=== PATIENT | female | born 1930 | race Caucasian/White ===

== ENCOUNTER 2016-12-05 11:10 | Emergency (ER) | payer OTHER ==
--- NOTE | ~2016-12-05 | CR63 ---
[facility]. [facility] A Service of [facility] & [facility] RADIOLOGY TEXT RESULTS PATIENT: HAYDE WHITLOCK LOCATION: SED : 30 UNIT #: [id number] AGE: [address]: Diego Bunch MD SEX: F ORDER DR: [id number] [id number] E MR#: [id number] Acc #: [id number] NAME: HAYDE WHITLOCK : 1930 SEX: F STUDY DATE/TIME: 12/05/2016 10:29 UNIT: SED ROOM: STUDY DESCRIPTION: CR Chest 2 View Attending Physician: Diego Bunch M.D. Ordering Physician: Diego Bunch M.D. Primary Care Physician: Ari Johnson M.D. MEDICAL IMAGING REPORT This report is preliminary unless electronic signature is present. EXAM Chest 2 views dated 12/05/2016 COMPARISON Single view chest dated 03/22/2009. HISTORY Tongue and bilateral arm numbness for 1 hour at 1200 hours yesterday. FINDINGS 2 views of the chest were obtained. Postoperative cardiac changes are noted with evidence of CABG. There is diffuse mild prominence of the interstitial markings which could be related to crowding in this poor inspiration film. However mild interstitial disease is in the differential consideration. There is mild right lung base alveolar infiltrate/atelectasis. No pneumothorax. Heart is of normal size. Degenerative changes are noted in the thoracic spine. Dictated by... Abhi Colon M.D. THIS IS AN ELECTRONICALLY VERIFIED REPORT Abhi Colon M.D. at 12/05/2016 2:42 PM CPR/mjs TD: 12/05/2016 13:24 JOB #: [id number] MEDICAL IMAGING REPORT Page 1 of 1
--- NOTE | ~2016-12-05 | EKG ---
PATIENT: HAYDE WHITLOCK UNIT #: [id number] Ventricular Rate: 64 BPM Atrial Rate: 64 BPM P-R Interval: 184 ms QRS Duration: 92 ms Q-T Interval: 414 ms QTC Calculation(Bezet): 427 ms P [place]: 67 degrees Calculated R [place]: 3 degrees Calculated T [place]: 16 degrees Diagnosis Line: Normal sinus rhythm Diagnosis Line: Moderate voltage criteria for LVH, may be normal Diagnosis Line: variant Diagnosis Line: Borderline ECG Diagnosis Line: No previous ECGs available Diagnosis Line: Confirmed by VALERY MURPHY MD ([id number]) on Diagnosis Line: 12/15/2016 7:14:00 AM INTERPRETING MD: NIRMAL
--- NOTE | ~2016-12-05 | CT72 ---
[facility] A Service [facility] RADIOLOGY TEXT RESULTS PATIENT: HAYDE WHITLOCK LOCATION: SED : 30 UNIT #: [id number] AGE: [address]: Diego Bunch MD SEX: F ORDER DR: [id number] [place] [id number] E MR#: [id number] [facility] #: [id number] NAME: HAYDE WHITLOCK. : 1930 SEX: F STUDY DATE/TIME: 12/05/2016 10:26 UNIT: SED ROOM: STUDY DESCRIPTION: CT Head Wo Contrast Stroke Attending Physician: Diego Bunch M.D. Ordering Physician: Diego Bunch M.D. Primary Care Physician: Ari Johnson M.D. MEDICAL IMAGING REPORT This report is preliminary unless electronic signature is present. EXAM Noncontrast CT head. Date: 12/05/2016 HISTORY 86-year-old female with bilateral arm numbness for 1 hour. Tongue numbness at noon yesterday. COMPARISON Noncontrast CT head 11/27/2008. The CT exam was performed with one or more of the following radiation dose reduction techniques: automatic exposure control, adjustment of mA and/or kV according to patient size, and iterative reconstruction. FINDINGS There is mild generalized age-appropriate parenchymal atrophy. The fried matter-white matter junction distinction appears preserved without convincing CT evidence of acute infarct. Hypodensities are scattered throughout the deep white matter, nonspecific but favored to represent changes of chronic microvascular disease. These findings appear slightly progressed since the 2008 exam. No mass lesion, mass effect or midline shift or evidence of acute intracranial hemorrhage. Mild dense atherosclerotic calcifications in the carotid arteries, mild atherosclerotic calcification in the right vertebral artery. Mastoid air cells appear clear. Right middle turbinate contra bullosa incidentally noted. Paranasal sinuses appear clear. No displaced calvarial fracture. IMPRESSION 1. Mild chronic-appearing microvascular disease changes appear slightly progressed since 2008 examination but there is no convincing evidence [facility] A Service [facility] RADIOLOGY TEXT RESULTS PATIENT: HAYDE WHITLOCK LOCATION: [facility] #: [id number] : 30 UNIT #: [id number] AGE: [address]: Diego Bunch MD SEX: F ORDER DR: of acute or evolving infarct. If the patient's stroke-like symptoms persist or remain unexplained, consider correlation MRI brain stroke protocol. 2. Mild age-appropriate parenchymal atrophy. 1. Dictated by... Elly Puga M.D. THIS IS AN ELECTRONICALLY VERIFIED REPORT Elly Puga M.D. at 12/06/2016 8:33 AM [facility]/gary TD: 12/05/2016 12:32 JOB #: [id number] MEDICAL IMAGING REPORT Page 1 of 1
[2016-12-05 10:26] LABS: POC - CKMB 1.5 ng/mL (0.0-7.9)
[2016-12-05 10:27] LABS: POC - TROPONIN <0.05 ng/mL (<=0.05)
[2016-12-05 10:35] LABS: INR 1.1
[2016-12-05 10:36] LABS: BASOPHIL# 0.1 X10e3 (0-0.3); BASOPHIL% 0.7 % (0-2.5); DIFF IND NO; EOSINOPHIL# 0.1 X10e3 (0-0.7); EOSINOPHIL% 0.9 % (0.0-7.0); HEMATOCRIT 40.9 % (35.0-45.0); HEMOGLOBIN 13.7 gm/dL (12.0-16.0); LYMPHOCYTE# 2.9 X10e3 (1.0-3.5); LYMPHOCYTE% 33.6 % (17.0-45.0); MEAN CELL VOLUME 81.7 FL (83-96); MEAN CORPUSCULAR HEMOGLOBIN 27.4 PG (28-34); MEAN CORPUSCULAR HGB CONC 33.6 g/dL (30-36); MEAN PLATELET VOLUME 8.8 FL (6.5-11.5); MONOCYTE# 0.7 X10e3 (0-1.0); NEUTROPHIL# 4.9 X10e3 (1.5-7.1); NEUTROPHIL% 56.8 % (40-75); PLATELET COUNT 297 X10e3 (140-420); RED BLOOD COUNT 5.01 X10e (3.90-5.30); WHITE BLOOD COUNT 8.6 X10e3 (4.0-10.5)
[2016-12-05 10:49] LABS: PARTIAL THROMBOPLASTIN TIME 28.4 SECONDS (25.6-38.1)
[2016-12-05 10:58] LABS: BILIRUBIN, DIRECT 0.1 mg/dL (0.0-0.2); BILIRUBIN,INDIRECT 0.5 mg/dL (0.0-0.9); BILIRUBIN,TOTAL 0.6 mg/dL (0.2-2.0); BUN/CREATININE RATIO 18.18; CALCIUM SERUM 10.3 mg/dL (8.4-10.2); CREATININE SERUM 1.1 mg/dL (0.6-1.4); GLOM FILT RATE Estimated 45.4 mL/min (>60); POTASSIUM 3.3 mmol/L (3.5-5.1); PROTEIN TOTAL SERUM 7.6 g/dL (6.0-8.3)
[~2016-12-05 11:10] MED LIST: AMLODIPINE BESYL5 MG PO; BAYER ASPIRIN325 M1 PO; BYSTOLIC10 MG PO; CENTRUM SILVER1 EAC3 PO; CHLORTHALIDONE50 M1 PO; FORTAMET500 MG PO; GLIPIZIDE-METF1 EACH PO; LANTUS100 UNITS/ SUBQ
[2016-12-05 11:16] LABS: URINE SOURCE CLEAN CATCH
[2016-12-05 11:17] LABS: URINE APPEARANCE CLEAR; URINE BILIRUBIN NEG (NEG); URINE BLOOD NEG (NEG); URINE COLOR YELLOW; URINE GLUCOSE NEG (NORM); URINE KETONE NEG (NEG); URINE LEUKOCYTE ESTERASE NEG (NEG); URINE NITRATE NEG (NEG); URINE PH 6.5 (5-8); URINE PROTEIN 2+ (NEG); URINE UROBILINOGEN 0.2 MG/DL (NORM)
[2016-12-05 11:18] LABS: MICRO INDICATED? YES
[2016-12-05 11:34] LABS: CULTURE INDICATED? NO; URINE BACTERIA NEG (NEG); URINE MUCUS PRESENT; URINE RBC NEG /[HPF] (0-2); URINE SQUAMOUS EPITHELIAL CELL FEW /[HPF]; URINE WBC NEG /[HPF] (0-5)
[2017-01-14] MEDS ORDERED: AMLODIPINE BESYL5 MG PO (16:16)
[2017-01-14] MEDS ORDERED: DULCOLAX10 MG PR (16:17)
[2017-01-14] MEDS ORDERED: BAYER ASPIRIN325 M1 PO (16:17)
[2017-01-14] MEDS ORDERED: CATAPRES0.1 MG PO (16:18)
[2017-01-14] MEDS ORDERED: HYDRALAZINE HCL50 MG PO (16:18)
[2017-01-14] MEDS ORDERED: NITROGLYGERIN0.4 MG SL (16:19)
[2017-01-14] MEDS ORDERED: CENTRUM SILVER PO (16:19)
[2017-01-14] MEDS ORDERED: SIMVASTATIN40 MG PO (16:21)
[2017-01-14] MEDS ORDERED: K-TAB ER20 MEQ PO (16:21)
[2017-01-15] MEDS ORDERED: HCTZ PO (11:26)
[2017-01-15] MEDS ORDERED: AMIODARONE (11:27)
== END 2016-12-05 12:26 | disposition hospice, home (50) ==
LOC: SED 11:10
PROVIDERS: Emergency Medicine
DX: R20.0 Anesthesia of skin (principal); R47.9 Unspecified speech disturbances; I10 Essential (primary) hypertension; E11.9 Type 2 diabetes mellitus without complications; Z95.1 Presence of aortocoronary bypass graft; Z98.890 Other specified postprocedural states; Z79.82 Long term (current) use of aspirin; Z79.899 Other long term (current) drug therapy
CPT/HCPCS: 36415; 70450; 71020; 80048; 80076; 81003; 82553; 83874; 84484; 85025; 85610; 85730; 93005; 99284

== ENCOUNTER 2017-01-04 08:56 | Inpatient (IN) | payer OTHER ==
--- NOTE | ~2017-01-04 | CO ---
Unit #: [id number] #: [id number] Patient: HAYDE WHITLOCK [id number] [address] [place], [place] [address] [id number] I MR#: [id number] NAME: HAYDE WHITLOCK ROOM: 334 Age: 86 Sex: F Admission Date: 01/04/2017 : 1930 Attending Physician: Fam Lugo M.D. Primary Care Physician: Ari Johnson M.D. Consultation Date: 01/05/2017 CONSULTATION REPORT REASON FOR CONSULTATION Sinus bradycardia with some pauses and nonconductive PACs. HISTORY OF PRESENT ILLNESS This is an 86-year-old white female with known history of having coronary artery disease, previous CABG back in 2002, but she reports she had a [place] back in 1981, diabetic, hypertension, hyperlipidemia, history of breast cancer status post mastectomy, history of bilateral carotid endarterectomies and reformed smoker. The patient came to the hospital after she was found by her granddaughter to be having some aphasia and altered mental status. The patient's granddaughter usually brings her child over to her house in the morning. 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 The granddaughter found the patient in the bed confused and, as mentioned, had abnormal speech. On interview with the patient today, who seems to be awake, alert and oriented, she says she does not really remember her granddaughter calling EMS but she does somewhat remember the ambulance ride to the hospital but really did not become fully aware of being in the hospital until late last evening. She reports that she has been having a headache for several days and has been feeling a little fatigued. She denies any chest pain, pain in her neck, bilateral jaw, shoulders, arms or elbow. She denies any palpitations. She has been having a little bit of dizziness she said with the headache but denies presyncope or syncope. The patient was brought in for further evaluation. In the emergency room, the patient's blood pressure was 216/71 and her heart rate was 79, respirations 18, afebrile. O2 sat was 98% on room air. CT of the head was done and showed nothing acute. They did not call a CODE stroke because they did not know the last normal time she was seen. Her potassium was noted to be 2.9 and the family reports that she had been admitted at [facility] in the past month or so for hypokalemia. The patient did report, after examined and interviewed by Dr. Omalley, that she did have some left-sided weakness in her upper extremity briefly that she recalls and also that she had an episode like this a couple of weeks ago but did not seek medical attention. It resolved simultaneously and not sure if she told her family. The patient's telemetry is showing frequent nonconductive PACs and then her heart rate will slow down maybe to the forties. 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 She says she has not for several years. She is unaware of any rhythm problems in the past. Cardiology consulted to assist with evaluation and management. PAST MEDICAL HISTORY 1. Coronary artery disease, myocardial infarction in 1981, medical management at that time and, in 2002, had a coronary artery bypass graft. Unit #: [id number] #: [id number] Patient: HAYDE WHITLOCK 2. Diabetes mellitus type 2. 3. Hypertension. 4. Hyperlipidemia. 5. History of breast cancer status post mastectomy. 6. Peripheral vascular disease status post bilateral carotid endarterectomy around 2002. 7. History of hypokalemia. Admission at [facility] in the past one to two months. 8. Reformed smoker. PAST SURGICAL HISTORY 1. Left mastectomy for breast cancer around 2002. 2. Bilateral carotid endarterectomy around 2002. 3. History of coronary artery bypass graft in 2002. SOCIAL HISTORY The patient lives in her home alone. She continues to drive. 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 She actually walks to the bus everyday and gets a small child and babysits. She quit smoking back in 1981 but she had smoked for several years. No alcohol or illicit drug abuse. FAMILY HISTORY Her mother at the age of 94. Her father at the age of 65 of a myocardial infarction. Her siblings are in generally well health. ALLERGIES Iodine. HOME MEDICATIONS 1. Chlorthalidone 50 mg p.o. daily. 2. Amlodipine 5 mg p.o. daily. 3. Junior aspirin 325 mg p.o. daily. 4. Centrum multivitamin one tablet p.o. daily. 5. Metformin two tablets p.o. daily. 6. Klor-Con 10 mEq p.o. daily. 7. Lantus 50 units subcu at bedtime. 8. Simvastatin 40 mg p.o. at bedtime. 9. Atenolol. Questionable dosage and frequency. The patient states she was on atenolol and it is not listed on her medication reconciliation. REVIEW OF SYSTEMS See details in HPI. PHYSICAL EXAMINATION GENERAL APPEARANCE: Ms. Whitlock is an 86-year-old white female in no acute respiratory distress. She is awake, alert and oriented. VITAL SIGNS: On admission, she was as high as 216/71. Her blood pressure elevated 181/70, as low as 143/64 and this morning 184/62. Heart rate 64. Respirations 18. Temperature 97.6. O2 sats 100% on room air. NECK: Trachea midline. No thyromegaly, lymphadenopathy. She has a systolic carotid bruit noted. HEART: S1, S2. Regular rate and rhythm. Systolic murmur over aortic region left sternal border. LUNGS: Diminished, otherwise, clear. ABDOMEN: Soft, nontender. EXTREMITIES: Pedal pulses are palpable. No pedal edema. DIAGNOSTIC STUDIES Unit #: [id number] #: [id number] Patient: HAYDE WHITLOCK LABORATORY: ABG: pH 7.451, pCO2 41.2, pO2 130, O2 sats 98.3, two liters. Glucose 142, BUN 15, creatinine 1.0, EGFR 51, sodium 139, potassium 3.5 this morning. On admission, her potassium was 2.9, chloride 103, CO2 29, calcium 7.5, magnesium 2.0, total protein 5.8, albumin 3.1, bilirubin total 0.8, AST 18, ALT 15, alkaline phosphatase 51. Initial cardiac enzymes: CK MB 1.8, troponin less than 0.05. CK MB 1.5, troponin less than 0.05. INR 1.0. WBC 10.2, hemoglobin 12.8, hematocrit 39.4, platelets 230. Urinalysis shows 2+ protein, 500 glucose, 0.2 urobilinogen, 1+ blood. IMAGING: Chest x-ray shows CABG and some increase in the interstitial markings diffusely. CT of the chest without contrast with no definite abnormality. MRI of the brain shows moderate small vessel type white matter change and volume loss but no evidence of acute ischemia. MRA of the neck with and without contrast shows a moderate left subclavian artery stenosis beginning at its origin and extending for about 1.0 cm and probable mild left vertebral origin stenosis and moderate upper left cervical vertebral stenosis. Plaque at both cervical carotid bifurcation with the left being 50%. MRA of the head with no contrast shows no compelling evidence of substantial intracranial flow-limiting stenosis. 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 CARDIOVASCULAR: EKG shows normal sinus rhythm with frequent premature atrial contractions, left ventricular hypertrophy, ventricular rate 76 beats per minute. No ischemia. IMPRESSION 1. Altered mental status changes, questionable TIA versus stroke. 2. Slowing of the heart rate secondary to nonconductive PACs. 3. Left carotid bruit questionable left subclavian steal and questionable restenosis of the left carotid. 4. Poorly controlled hypertension. 5. Diabetes mellitus type 2. 6. Hyperlipidemia. 7. History of coronary artery disease. Previous coronary artery bypass grafts in 2002. 8. History of bilateral carotid endarterectomies. 9. Breast cancer status post mastectomy. 10. History of hypokalemia with a history of recent hospitalization at [facility]. 11. Reformed smoker. PLAN 1. Cardiology consulted to evaluate patient's slowing of her heart rate. After looking over the telemetry strips, the patient is having slowing of the heart rate secondary to nonconductive PACs. Dr. Omalley evaluated the rhythm strips and wants to stop the atenolol that the patient reports that she was taking. She reports she thought she took it yesterday morning and we will change that to amiodarone for control of the PACs. 2. Dr. Omalley has consulted Dr. Mckeon for possible subclavian steal syndrome. The patient has a left carotid bruit and it appears maybe on her MRA of the neck that she could have some restenosis of her left carotid, which may be causing some of her symptoms. He will come and evaluate the patient. She will need a CT angiogram to evaluate for carotid and subclavian artery stenosis and that will be tomorrow. We will give the patient Mucomyst 600 mg p.o. b.i.d. x4 doses. Unit #: [id number] #: [id number] Patient: CHINYERE,HAYDE A 3. The patient's blood pressure was poorly controlled on admission and also her potassium is low. We will discontinue the chlorthalidone and increase the amlodipine from 5 to 10 mg and also we will add clonidine 0.1 mg p.o. t.i.d. and hydrochlorothiazide 25 mg p.o. daily for blood pressure control. The patient is on the magnesium and potassium protocol. We will make final recommendations on the dose of potassium before discharge. 4. Obtain records from [facility]. She states that is where she had her surgeries years ago and also obtain records from [facility]. She had a recent admission. 5. On exam, there are no signs or symptoms of unstable angina. Cardiac enzymes have remained negative. EKG unremarkable. No signs or symptoms of acute congestive heart failure. 6. Neurology is managing the patient's anticoagulation for now. She is on aspirin and they have started Plavix if the patient can swallow and she did have a swallowing test and her diet has been advanced. 7. Obtain a 2-D echo to evaluate LV function and valves. 8. Obtain a fasting lipid profile and TSH and evaluate. 9. Further recommendations pending per Dr. Omalley. Thank you very much for allowing us to assist in the care. Dictated by... Leila Martinez A.P.R.N. for Gael Omalley M.D. JOSE/baldemar TD: 01/05/2017 09:40 JOB #: [id number] CONSULTATION REPORT Page 1 of 1 X Leila Martinez APRN X CONSULTATION REPORT
--- NOTE | ~2017-01-04 | DS ---
Unit #: [id number] #: [id number] Patient: HAYDE WHITLOCK [id number] [address] [place], [place] [address] [id number] MR#: [id number] NAME: HAYDE WHITLOCK. ROOM: 334 Age: 86 Sex: F Admission Date: 01/04/2017 : 1930 Discharge Date: 01/08/2017 Attending Physician: Fam Lugo M.D. Primary Care Physician: Ari Johnson M.D. DISCHARGE SUMMARY ADMITTING DIAGNOSIS Altered mental status. FURTHER DIAGNOSES 1. 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 2. Diabetes. 3. Hypertension. 4. Hyperlipidemia. 5. History of coronary artery disease. 6. History of breast cancer. HISTORY OF PRESENT ILLNESS Patient is an 86-year-old lady with a past medical history of diabetes, hypertension, hyperlipidemia, coronary artery disease, breast cancer, was brought to the emergency room mainly because of altered mental status. 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 At the time 911 was called and she was brought to the emergency room. Stroke protocol was not initiated as duration when she was last really good is unknown. In the emergency room a CT of the head and later a followed by MRA was done. No acute evidence of stroke was noted. She had hypokalemia which was treated. Her initial potassium was 2.9. She was given potassium replacements and monitored. She had frequent PACs and questionable left bundle-branch block for further evaluation. Cardiology was consulted. Cardiology titrated the medications. Because of her hypokalemia, chlorthalidone was stopped and she started on thiazides and other cardiac medications. With a concern for subclavian steal syndrome Vascular Surgery was consulted. As her pulses were good Vascular Surgery recommended no intervention at this point. She was instructed to follow with her primary care and cardiology in one to two weeks. She is very hard to hear. Today I spoke with patient and her daughter at length and explained to her she needs home healthcare and she needs to follow with primary care and cardiology in one to two weeks. PHYSICAL EXAMINATION ON THE DAY OF THE DISCHARGE VITAL SIGNS: Temperature 97.8, pulse rate 81, respirations 18, blood pressure 140/60. GENERAL: Patient is alert and oriented x3, lying in the bed, in no acute distress. HEENT: Normocephalic and atraumatic. No icterus. PERRLA. Extraocular movements intact. NECK: Supple. No JVD. HEART: S1, S2, regular rate and rhythm. Unit #: [id number] #: [id number] Patient: HAYDE WHITLOCK CHEST: Bilateral equal air entry, clear to auscultation. ABDOMEN: Soft, nontender. EXTREMITIES: No edema. Normal peripheral pulses. DIAGNOSTIC STUDIES LABORATORY: She does not have any labs today. On the labs from yesterday her diagnostic date includes glucose of 94, BUN 15, creatinine 0.9, sodium 140, potassium 3.3 (she did get replacement), chloride 106, bicarb 28, magnesium 2.1. DISCHARGE MEDICATIONS Her discharge medications include: 1. Amiodarone 200 mg p.o. daily. 2. Topamax 25 mg p.o. b.i.d. 3. Metformin 500 two tabs p.o. daily. 4. Norvasc 10 mg daily. 5. Bisacodyl 10 mg p.o. daily p.r.n. constipation. 6. Simvastatin 40 mg p.o. q.h.s. 7. Lantus 50 units subcu q.h.s. 8. Clonidine 0.1 mg daily. 9. Hydralazine 15 mg p.o. b.i.d. 10. Lantus 50 units subcu daily. 11. Multivitamin one capsule p.o. daily. 12. Aspirin 325 mg daily. 13. KCl 10 mEq p.o. daily. FOLLOWUP She is instructed to follow with her primary care and with cardiology in one to two weeks. NOTE She is hard to hear. I spoke with her daughter and explained to her the plan. Total time spent in her discharge 35 minutes. Dictated by... Fam Lugo M.D. JARETT/jacinto TD: 01/09/2017 17:42 JOB #: [id number] DISCHARGE SUMMARY Page 1 of 1 X X DISCHARGE SUMMARY
--- NOTE | ~2017-01-04 | MR133 ---
[facility] A Service of [facility] & [facility] RADIOLOGY TEXT RESULTS PATIENT: HAYDE WHITLOCK LOCATION: [facility] 334- : 30 UNIT #: [id number] AGE: [address]: Fam Lugo MD SEX: F ORDER DR: [id number] [facility] [address] [place], [place] [address] [id number] I MR#: [id number] Acc #: [id number] NAME: HAYDE WHITLOCK. : 1930 SEX: F STUDY DATE/TIME: 01/04/2017 21:34 UNIT: [address] ROOM: [facility] STUDY DESCRIPTION: MR MRA Neck WWo Contrast Attending Physician: Laine Blanco M.D. Ordering Physician: Elian Dunaway M.D. Primary Care Physician: Ari Johnson M.D. MRI CENTER REPORT This report is preliminary unless electronic signature is present. EXAM Neck MRA with and without contrast, 01/04/2017 PROCEDURE Axial occe-bn-kwhlww neck MRA with three dimensional reformats, and coronal gadolinium bolus neck MRA with three dimensional reformats. COMPARISON None HISTORY Confusion and speech disturbance since this morning. Aphasia. FINDINGS There is a normal arch branching pattern. There is moderate stenosis in the proximal left subclavian artery beginning at its origin and extending for about 1.0 cm. There is probably mild left vertebral origin stenosis and there is at least moderate upper left cervical vertebral stenosis as well. No other great vessel origin stenosis is seen. There is plaque at the cervical carotid bifurcations with about 40% to 50% left ICA stenosis by NASCET criteria on the left, and on the right, probably no more than 10% to 20% ICA stenosis by NASCET criteria. The right vertebral appears widely patent from its origin and throughout the neck. IMPRESSION 1. At least moderate left subclavian artery stenosis beginning at its origin and extending for about 1.0 cm, and probably mild left vertebral origin stenosis but at least moderate upper left cervical vertebral stenosis probably at about the C3 level. 2. Plaque at both cervical carotid bifurcations with probably 50% left STS. [facility] A Service of [facility] & [facility] RADIOLOGY TEXT RESULTS PATIENT: HAYDE WHITLOCK LOCATION: [facility] 334-01 : 30 UNIT #: [id number] AGE: [address]: Fam Lugo MD SEX: F ORDER DR: and 10% right ICA stenosis by NASCET criteria. Dictated by... Jose Posey M.D. THIS IS AN ELECTRONICALLY VERIFIED REPORT Jose Posey M.D. at 01/05/2017 3:56 PM AVNI/simba TD: 01/05/2017 08:00 JOB #: [id number] MRI CENTER REPORT Page 1 of 1 COPY
--- NOTE | ~2017-01-04 | EKG ---
PATIENT: HAYDE WHITLOCK UNIT #: [id number] Ventricular Rate: 51 BPM Atrial Rate: 51 BPM P-R Interval: 142 ms QRS Duration: 90 ms Q-T Interval: 460 ms QTC Calculation(Bezet): 423 ms P [place]: 12 degrees Calculated R [place]: 9 degrees Calculated T [place]: 18 degrees Diagnosis Line: Sinus bradycardia with marked sinus arrhythmia Diagnosis Line: Otherwise normal ECG Diagnosis Line: When compared with ECG of 04-JAN-2017 09:15, Diagnosis Line: Vent. rate has decreased BY 25 BPM Diagnosis Line: Confirmed by CHELSEY STAPLES MD ([id number]) on 01/09/2017 Diagnosis Line: 5:40:28 AM INTERPRETING MD: JHOAN CARPENTER
--- NOTE | ~2017-01-04 | CO ---
Unit #: [id number] #: [id number] Patient: HAYDE WHITLOCK [id number] [facility] [address] [place], [place] [address] [id number] I MR#: [id number] NAME: HAYDE WHITLOCK. ROOM: 334 Age: 86 Sex: F Admission Date: 01/04/2017 : 1930 Attending Physician: Fam Lugo M.D. Primary Care Physician: Ari Johnson M.D. CONSULTATION REPORT REASON FOR CONSULT Rule out carotid atherosclerosis and subclavian steal. HISTORY OF PRESENT ILLNESS This is an 86-year-old female being seen today in the EEG lab who initially presented to [facility] after suffering "stroke-like symptoms." She has a history of experiencing similar episodes in the past. She reports that she has no recollection of coming to the hospital but she knows that she was confused at the time of the event. Similar episodes in the past have also been attributed to hypoglycemia and she recalls one such event where her blood sugar registered 36. Ms. Whitlock has a history of undergoing bilateral carotid endarterectomies in June and July respectively of [address] Geronimo. Following these surgeries, she also underwent coronary artery bypass grafting x5. She reports no recent followup with vascular surgery to monitor her carotid arteries. She complains of no pain with ambulation and ambulates as much as desired. 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 ALLERGIES Allergies include iodine. MEDICATIONS Home medications include: 1. Chlorthalidone 50 mg daily. 2. Amlodipine 5 mg daily. 3. Bystolic 10 mg daily. 4. 325 mg aspirin daily. 5. Calcium tablet daily. 6. Centrum Silver vitamin daily. SOCIAL HISTORY The patient lives alone. She has a history of smoking although she quit in 1981. Denies alcohol or drug use. REVIEW OF SYSTEMS Negative unless noted in the HPI. PHYSICAL EXAMINATION GENERAL APPEARANCE: This is a well developed, well nourished female in no acute distress. HEENT: Normocephalic. Pupils equal, round, reactive to light. NECK: Bilateral carotid bruits, left louder than right. Well-healed bilateral neck scars. Unit #: [id number] #: [id number] Patient: HAYDE WHITLOCK CARDIAC: Regular rate and rhythm. No murmurs identified. LUNGS: Clear to auscultation, room air. Breathing is nonlabored. ABDOMEN: Positive bowel sounds. Abdomen is soft, nontender, no distention. No palpable pulsatile masses felt on examination. MUSCULOSKELETAL: Patient moves all extremities with full range of motion. VASCULAR: Palpable radial pulses bilaterally with left radial pulse mildly weaker than right radial pulse. Palpable femoral pulses bilaterally. Palpable dorsalis pedis and posterior tibialis pulses bilaterally. INTEGUMENTARY: Skin is warm and dry. No obvious sores, lesions or nonhealing wounds. NEUROLOGICAL: Cranial nerves II-XII are grossly intact. Normal strength and sensation bilaterally. PSYCHIATRIC: Oriented to person, place and time. Generally good historian. DIAGNOSTIC STUDIES IMAGING: Patient underwent MR imaging of the head which demonstrates left subclavian artery stenosis and left vertebral artery origin stenosis. Bilateral carotids suggest atherosclerosis with left measuring 50% stenosis and right measuring 10% stenosis by NASCET criteria. ASSESSMENT AND PLAN Carotid atherosclerosis: Will check CTA of the head and neck to further assess the severity of her carotid disease. Will premedicate the patient per radiology protocol given her iodine allergy. With respect to her left subclavian artery stenosis, she does not appear symptomatic from this at this time. She has palpable radial pulses and she reports experiencing no pain in this hand even with increased demand with activity. We will continue to follow this patient and await results of CTA. Thank you for allowing us to participate in the care of this patient. Dictated by... Cesar Rao APRN for Ramesh Curry/claudia TD: 01/06/2017 08:22 JOB #: [id number] CONSULTATION REPORT Page 1 of 1 X X CONSULTATION REPORT
--- NOTE | ~2017-01-04 | CT17 ---
[facility] A Service of [facility] & [facility] RADIOLOGY TEXT RESULTS PATIENT: HAYDE WHITLOCK LOCATION: [facility] 334- : 30 UNIT #: [id number] AGE: [address]: Fam Lugo MD SEX: F ORDER DR: [id number] [facility] [address]. [place], [place] [address] [id number] I MR#: [id number] Acc #: [id number] NAME: HAYDE WHITLOCK : 1930 SEX: F STUDY DATE/TIME: 01/06/2017 8:12 UNIT: [address] ROOM: [facility] STUDY DESCRIPTION: CT Angio Head Attending Physician: Fam Lugo M.D. Ordering Physician: aFm Lugo M.D. Primary Care Physician: Ari Johnson M.D. MEDICAL IMAGING REPORT This report is preliminary unless electronic signature is present EXAM CTA head Please see CTA neck for results. Dictated by... Cachorro Valderrama M.D. THIS IS AN ELECTRONICALLY VERIFIED REPORT Cachorro Valderrama M.D. at 01/06/2017 11:34 PM DFL/nikr TD: 01/06/2017 23:32 JOB #: [id number] MEDICAL IMAGING REPORT Page 1 of 1 COPY
--- NOTE | ~2017-01-04 | EKG ---
PATIENT: HAYDE WHITLOCK UNIT #: [id number] Ventricular Rate: 76 BPM Atrial Rate: 76 BPM P-R Interval: 206 ms QRS Duration: 94 ms Q-T Interval: 408 ms QTC Calculation(Bezet): 459 ms P [place]: 74 degrees Calculated R [place]: 5 degrees Calculated T [place]: 16 degrees Diagnosis Line: Normal sinus rhythm with sinus arrhythmia Diagnosis Line: Moderate voltage criteria for LVH, may be normal Diagnosis Line: variant Diagnosis Line: Borderline ECG Diagnosis Line: When compared with ECG of 05-DEC-2016 09:51, Diagnosis Line: No significant change was found Diagnosis Line: Confirmed by SHAYLEE CABRERA MD ([id number]) on 01/04/2017 Diagnosis Line: 10:09:30 AM INTERPRETING MD: DEBORAH CARPENTER
--- NOTE | ~2017-01-04 | MR122 ---
[facility] A Service of [facility] RADIOLOGY TEXT RESULTS PATIENT: HAYDE WHITLOCK LOCATION: [facility] : 30 UNIT #: [id number] AGE: [address]: Fam Lugo MD SEX: F ORDER DR: [id number] [facility] [address] [place], [place] [address] [id number] I MR#: [id number] Acc #: [id number] NAME: HAYDE WHITLOCK. : 1930 SEX: F STUDY DATE/TIME: 01/04/2017 21:34 UNIT: [address] ROOM: [facility] STUDY DESCRIPTION: MR MRA Head Wo Contrast Attending Physician: Laine Blanco M.D. Ordering Physician: Eilan Dunaway M.D. Primary Care Physician: Ari Johnson M.D. MRI CENTER REPORT This report is preliminary unless electronic signature is present. EXAM Head MRA no contrast, 01/04/2017 PROCEDURE Axial azyi-ee-pdiewr head MRA with three dimensional reformats. COMPARISON None HISTORY Onset this morning of confusion and aphasia. FINDINGS Both upper cervical internal carotid and vertebral arteries are patent and the basilar artery is patent. [place] of [place] is probably complete though that is not definite. Question small bilateral M1 aneurysms at or about the Jae origins bilaterally. No other evidence of intracranial aneurysm is seen and there is no substantial intracranial flow limiting stenosis. IMPRESSION Symmetric intracranial vascularity in the anterior, middle and posterior cerebral distributions without compelling evidence of substantial intracranial flow limiting stenosis. Question small 1.0-2.0 mm Heubner aneurysms bilaterally. No other evidence of aneurysm. Dictated by... Jose Posey M.D. THIS IS AN ELECTRONICALLY VERIFIED REPORT Jose Posey M.D. at 01/05/2017 3:56 PM AVNI/simba [facility] A Service of [facility] RADIOLOGY TEXT RESULTS PATIENT: HAYDE WHITLOCK LOCATION: [facility] : 30 UNIT #: [id number] AGE: [address]: Fam Lugo MD SEX: F ORDER DR: TD: 01/05/2017 08:06 JOB #: [id number] MRI CENTER REPORT Page 1 of 1 COPY
--- NOTE | ~2017-01-04 | A ---
[facility] Nutrition Therapy DATE: 01/05/17 Patient: HAYDE WHITLOCK Physician: MO Address: [address] Room/Bed: [address] [place] [address], Zip: [place] [phone] Admit Date: 01/04/17 Date of : 30 Height: Weight: 141 64.1 NUTRITIONAL ASSESSMENT: REASON: STROKE PROTOCOL (NOTE: RD DID NOT RECEIVE CONSULT) 86 YO FEMALE ADMITTED FOR CVA PMH: DM, HTN, HLD, CAD, breast cancer s/p mastectomy, PAD, s/p CABG Anthropometrics: Ht: 5'4" Wt: 64.1 kg BMI: 24.2 Diet: Regular Assessment: Chart reviewed, events noted. RD spoke with the pt at bedside. 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 RD discussed heart healthy diet strategies with the pt, and she voiced understanding. Pt reports slightly decreased intake with advancing age. RD encouraged adequate nutritional intake with heart healthy diet strategies. Pt denied having any further questions regarding her diet. RD to remain available. Recommendations: 1. Heart healthy/ consistent carbohydrate diet due to the pt's PMH and Dx. Please consult RD for any further nutritional needs. Respectfully, LACEY SIU RD, LD Food and Nutritional Services [facility] cc: client file
--- NOTE | ~2017-01-04 | CT23 ---
[facility] A Service of [facility] & [facility] RADIOLOGY TEXT RESULTS PATIENT: HAYDE WHITLOCK LOCATION: [facility] 334- : 30 UNIT #: [id number] AGE: [address]: Fam Lugo MD SEX: F ORDER DR: [id number] [facility] [address] [place], [place] [address] [id number] I MR#: [id number] Acc #: [id number] NAME: HAYDE WHITLOCK. : 1930 SEX: F STUDY DATE/TIME: 01/06/2017 8:12 UNIT: [address] ROOM: [facility] STUDY DESCRIPTION: CT Angio Neck Attending Physician: Fam Lugo M.D. Ordering Physician: Fam Lugo M.D. Primary Care Physician: Ari Johnson M.D. MEDICAL IMAGING REPORT This report is preliminary unless electronic signature is present EXAM CT angiogram head and neck with IV contrast HISTORY Headache and dizzy for [address] exam was performed with one or more of the following radiation dose reduction techniques: automatic control, adjustment of mA and/or kV according to patient size, and iterative reconstruction. FINDINGS IV contrast enhanced CT angiogram of the head and neck was performed with 3-D reconstructions. CT ANGIOGRAM NECK: Approximately 70% stenosis at the origin of the left subclavian artery secondary to calcified plaque. Approximately 50% narrowing at the origin of the left vertebral artery secondary to calcified plaque. There is also approximately 70% left vertebral artery narrowing at the level of C3. Mild calcified atherosclerotic plaque in the distal left common carotid artery. Postop changes of prior bilateral carotid endarterectomies. Less than 20% stenosis at the carotid bulbs bilaterally, by NASCET criteria. The remainder of the cervical internal carotid arteries are widely patent. The right vertebral artery is widely patent. CT ANGIOGRAM BRAIN: The intracranial vertebral arteries and basilar artery are widely patent. Mild atherosclerotic plaque in the cavernous carotid arteries bilaterally. The anterior cerebral, middle cerebral and posterior cerebral arteries are widely patent bilaterally. No aneurysm or vascular malformation is identified. No posterior circulation abnormality. IMPRESSION [facility] A Service of [facility] & [facility] RADIOLOGY TEXT RESULTS PATIENT: HAYDE WHITLOCK LOCATION: A 334-01 : 30 UNIT #: [id number] AGE: [address]: Fam Lugo MD SEX: F ORDER DR: 1. Approximately 70% atherosclerotic stenosis at the origin of the left subclavian artery secondary to calcified atherosclerotic plaque. 2. Approximately 50% stenosis at the origin of the left vertebral artery also due to calcified plaque. 3. Approximately 70% short-segment stenosis of the left cervical vertebral artery at the level of C3. 4. Less than 20% stenosis in the carotid bulbs by NASCET criteria. 5. Prior bilateral carotid endarterectomies. 6. No intracranial arterial stenosis or major vessel occlusion. Dictated by... Cachorro Valderrama M.D. THIS IS AN ELECTRONICALLY VERIFIED REPORT Cachorro Valderrama M.D. at 01/07/2017 2:58 PM DFL/siva TD: 01/06/2017 23:31 JOB #: [id number] MEDICAL IMAGING REPORT Page 1 of 1 COPY
--- NOTE | ~2017-01-04 | CR72 ---
[facility] A Service of [place] & [facility] RADIOLOGY TEXT RESULTS PATIENT: HAYDE WHITLOCK LOCATION: [facility] : 30 UNIT #: [id number] AGE: [address]: Cecile Morales MD SEX: F ORDER DR: [id number] [facility] [address] [place], [place] [address] [id number] E MR#: [id number] Acc #: [id number] NAME: HAYDE WHITLOCK. : 1930 SEX: F STUDY DATE/TIME: UNIT: [facility] ROOM: STUDY DESCRIPTION: CR Chest Single View Portable Attending Physician: Cecile Morales M.D. Ordering Physician: Cecile Morales M.D. Primary Care Physician: Ari Johnson M.D. MEDICAL IMAGING REPORT This report is preliminary unless electronic signature is present EXAM Chest portable 01/04/2017 0925 hours HISTORY 86-year-old with altered mental status and shortness of air today. History of diabetes and prior CABG. COMPARISON 12/05/2016 FINDINGS Single upright portable view demonstrates prior median sternotomy and CABG. The heart size, mediastinal and hilar contours are normal. Lung volumes are lower than on the prior two-view chest. There is increase in interstitial markings diffusely. This could be a manifestation of the low lung volumes although mild interstitial edema is difficult to exclude. No effusions are seen. IMPRESSION 1. CABG change with normal heart size. 2. Lung volumes are lower than on the prior two-view chest of 12/05/2016. There is increase in the interstitial markings diffusely. Some or all of this could be related to the low lung volumes. It is difficult to exclude an element of edema. No effusions seen. Consider upright two-view chest film when possible to reevaluate the lungs. Dictated by... Michelle Mckeon M.D. THIS IS AN ELECTRONICALLY VERIFIED REPORT Michelle Mckeon M.D. at 01/04/2017 2:28 PM SMM/to [facility] A Service of [place] & [facility] RADIOLOGY TEXT RESULTS PATIENT: HAYDE WHITLOCK LOCATION: [facility] #: [id number] : 30 UNIT #: [id number] AGE: [address]: Cecile Morales MD SEX: F ORDER DR: TD: 01/04/2017 11:44 JOB #: [id number] MEDICAL IMAGING REPORT Page 1 of 1 COPY
--- NOTE | ~2017-01-04 | CO ---
Unit #: [id number] #: [id number] Patient: HAYDE WHITLOCK [id number] [facility] [address] [place], [place] [address] [id number] I MR#: [id number] NAME: HAYDE WHITLOCK ROOM: 334 Age: 86 Sex: F Admission Date: 01/04/2017 : 1930 Attending Physician: Fam Lugo M.D. Primary Care Physician: Ari Johnson M.D. Requesting Physician: Laine Blanco M.D. Consultation Date: 01/04/2017 CONSULTATION REPORT REVISED REPORT REASON FOR CONSULTATION CVA. PATIENT IDENTIFICATION This is an 86-year-old, right-handed, female evaluated in the ER, initially T2 and now currently in room 334 [facility]. SOURCE OF INFORMATION Came from the patient's family as well as the medical record. HISTORY OF PRESENT ILLNESS This is an 86-year-old right-handed female with a past medical history of coronary artery disease, status post CABG, hypertension, hyperlipidemia, and diabetes, history of breast cancer, status post mastectomy, and peripheral arterial disease who underwent a history of carotid endarterectomy and presents at [facility] with altered mental status and altered speech and reported right-sided weakness. The patient was apparently last seen normal yesterday, since she was not called in as a code stroke it was felt she was not a candidate for any kind of intervention. She was found by her granddaughter in the bed, confused, having abnormal speech, not acting normally. The patient's granddaughter found her as she normally brings her child to her grandmother's house to catch the bus each day. She called EMS and the patient was brought to the ER for further evaluation. In the ER her head CT was done and showed no acute findings. Her blood pressure was elevated at 216/71 and her potassium was noted to 2.9. Neurologically the patient was reported to have limited movement of the right side and aphasia but upon my evaluation the patient is moving the right side but is confused, is having trouble understanding and following commands and trouble with naming and identifying. She is somewhat lethargic. MRI of the brain is ordered for further evaluation, MR angiogram of the head and neck. Neurology is asked to evaluate further. The patient is unable to contribute to the history or review of systems given her mental status. According to the granddaughter she is functional at baseline, lives independently and carries out her normal daily activities without difficulty. PAST MEDICAL HISTORY 1. Admission to [facility] within the last month or two for Unit #: [id number] #: [id number] Patient: HAYDE WHITLOCK hypokalemia. 2. CAD, history of CABG. 3. Hypertension. 4. Hyperlipidemia. 5. Peripheral arterial disease. 6. History of carotid endarterectomy. 7. Breast cancer, status post mastectomy. 8. Diabetes. FAMILY HISTORY Noncontributory given her stated age of 86 and presenting condition. SOCIAL HISTORY The patient lives alone. She has good social support. She has a daughter and a granddaughter who check on her frequently. She drives independently at baseline and walks without assistance and carries out her normal ADLs very independently. She is a reformed smoker as she quit in 1981. She did not have any history of alcohol abuse or illicit drug use. ALLERGIES Iodine. HOME MEDICATIONS 1. Chlorthalidone 50 mg p.o. daily. 2. Amlodipine besylate 5 mg p.o. daily. 3. Junior aspirin 325 mg p.o. daily. 4. Centrum Silver multivitamin 1 tab p.o. daily. 5. Metformin 2 tabs p.o. daily. 6. Potassium chloride 10 mEq p.o. daily. 7. Lantus insulin 50 units subcu at bedtime. 8. Simvastatin 40 mg p.o. q.h.s. REVIEW OF SYSTEMS Unable to obtain from the patient given her mental status. PHYSICAL EXAMINATION VITAL SIGNS: Temperature 99. She had a T. max of 100.5, pulse 82, respirations 16, blood pressure 171/62. Oxygen saturation 98%. Height not documented. Weight 158 pounds. NEUROLOGIC EXAM: Patient is lethargic but arousable. She is hard of hearing. She can open her eyes. She has trouble with following commands but she can mimic. She otherwise has difficulty with naming and identifying. I am not able to fully assess orientation. She cannot answer questions about orientation. She recognizes her granddaughter at the bedside but is unable to say her name. Cranial nerve exam: She appears to respond to threats and primary visual gabriel is difficult to evaluate thoroughly and peripherally. Eyes were conjugate without ptosis or nystagmus. Extraocular movements appear to be intact when she initially tracks within the room. Unable to fully assess sensation of the face and scalp. With assess of strength of muscle facial expression, she can mimic and does not appear to have a facial droop. Hearing is intact to voice. Tongue is midline. Unable to fully visualize the uvula and palate. Head turning is unremarkable spontaneously. Neck is supple. Motor exam: She displays normal bulk, decreased tone. Strength is difficult to assess and the patient has difficulty following commands. As Unit #: [id number] #: [id number] Patient: HAYDE WHITLOCK A far as her osteopathic neurologist strength fully, she does have a mild right upper extremity drift but not in the lower extremities. She does not appear to have any hemiparesis or paralysis. Sensory exam: She does grimace and withdraws from noxious stimuli. Gait and Romberg: Deferred. Reflexes: Unable to elicit. Toes are equivocal. Coordination: Unable to fully assess. No tremors or myoclonus. DIAGNOSTIC STUDIES IMAGING STUDIES: CT of head without contrast on 01/04/2017, impression per radiology report. No clearly acute abnormality seen in the brain. Mild generalized atrophy, paraventricular deep white matter tract, probable sequelae of chronic microvascular ischemia, cavernous carotid and distal vertebral arterial calcifications. Mild mucosal thickening ethmoid and sphenoid sinuses, no indication of acute sinusitis. DIAGNOSTIC STUDIES LABS: Potassium 3.4, CK 59, troponin 0.04, TSH 0.84, (1) less than 0.5, lactic acid 1.3. Cholesterol 178, triglycerides 203, LDL 83, HDL 54, BNP 122. Initial troponin less than 0.05. Urinalysis - 2+ protein, 500 glucose, 1+ blood, negative for bacteria, occasional squamous cells. PT 10.4, INR 1.0, PTT 25.8. White blood cell count on arrival 10.0, hemoglobin 13.9, hematocrit 41.2, platelet 264. CARDIOLOGY STUDIES: EKG - normal sinus rhythm with sinus arrhythmia. IMPRESSION 1. Acute onset focal neurologic changes with aphasia, concern for possible left middle cerebral artery stroke given presentation for sudden abrupt change from baseline. She is not a candidate for acute intervention given unclear last known well. 2. Hypokalemia. 3. CAD with history of CABG in the past. 4. History of breast cancer. 5. History of carotid disease with history of left carotid endarterectomy. 6. Uncontrolled diabetes mellitus type 2. 7. Hypertension. 8. Hyperlipidemia. 9. Reformed smoker. PLAN Will request MRI of the brain and MRI of the head and neck. She needs contrast ideally given her history of cancer but has been decreased with estimated GFR. Patent receives an aspirin and has been loaded with Plavix. Will continue IV fluids, which has been okayed with the hospitalist physician at 75 mL an hour. Chest x-ray not discussed above but has low lung volume. Her BNP is only 122. Will monitor closely. Currently the patient is NPO until seen by speech. Will continue per rectal aspirin and add Plavix, pending MRI results and evaluation by speech. Head of bed flat if the patient can tolerate and oxygen to maintain O2 greater than 94%. Further recommendations pending workup for further clinical course. Please see orders. Please call for any questions or issues. We thank you very much for allowing us to assist in Unit #: [id number] #: [id number] Patient: HAYDE WHITLOCK the care of this patient. Dictated by... Marlen SolaresPJosiasRJosiasN. for Anabell Vivas M.D. KIRIT/mar TD: 01/05/2017 09:30 JOB #: [id number] CONSULTATION REPORT Page 1 of 1 X Nichelle Aj APRN X CONSULTATION REPORT
--- NOTE | ~2017-01-04 | CT57 ---
[facility] A Service of [facility] RADIOLOGY TEXT RESULTS PATIENT: HAYDE WHITLOCK LOCATION: [facility] 334- : 30 UNIT #: [id number] AGE: [address]: Fam Lugo MD SEX: F ORDER DR: [id number] [facility] [address] [facility]. [place], [place] [address] [id number] I MR#: [id number] Acc #: [id number] NAME: HAYDE WHITLOCK. : 1930 SEX: F STUDY DATE/TIME: 01/04/2017 15:55 UNIT: [address] ROOM: [facility] STUDY DESCRIPTION: CT Chest Wo Cont Attending Physician: Laine Blanco M.D. Ordering Physician: Laine Blanco M.D. Primary Care Physician: Ari Johnson M.D. MEDICAL IMAGING REPORT This report is preliminary unless electronic signature is present EXAM CT of the chest without contrast. INDICATIONS Shortness of breath since yesterday. Patient has acute resuscitate failure and fever. TECHNIQUE Axial CT images were obtained from the thoracic inlet through the dome of the diaphragm. Intravenous contrast material was administered. This CT exam was performed with one or more of the following radiation dose reduction techniques: automatic exposure control, adjustment of mA and/or kV according to patient size, and iterative reconstruction. FINDINGS No definite acute infiltrates are identified. The patient is noted to have some dependent atelectasis bilaterally, right greater than left, as well as probable scarring within the lingula. I do not see any discrete noncalcified pulmonary nodules or masses. The thyroid gland and trachea appear within normal limits, as does the esophagus. There is no pleural or pericardial effusion. There are coronary artery calcifications and atherosclerotic involvement of the thoracic aorta. Mediastinal lymph nodes do not appear pathologically enlarged. The patient has cholelithiasis with dense atherosclerotic involvement of the abdominal aorta. Review of bony windows shows no aggressive osseous abnormalities. The patient is status post left mastectomy. IMPRESSION 1. No definite acute intrathoracic process is seen. Patient does have some mild dependent atelectasis, but no definite infiltrates are STS. [facility] A Service of [facility] RADIOLOGY TEXT RESULTS PATIENT: HAYDE WHITLOCK LOCATION: [facility] 334-01 : 30 UNIT #: [id number] AGE: [address]: Fam Lugo MD SEX: F ORDER DR: identified. 2. Cholelithiasis. 3. Please see the body of the report for any other additional incidental findings. Dictated by... Kiley Ontiveros M.D. THIS IS AN ELECTRONICALLY VERIFIED REPORT Kiley Ontiveros M.D. at 01/06/2017 10:08 AM NEELA/dorian TD: 01/04/2017 18:46 JOB #: [id number] MEDICAL IMAGING REPORT Page 1 of 1 COPY
--- NOTE | ~2017-01-04 | MR18 ---
[facility] A Service [facility] RADIOLOGY TEXT RESULTS PATIENT: HAYDE WHITLOCK LOCATION: [facility] : 30 UNIT #: [id number] AGE: [address]: Fam Lugo MD SEX: F ORDER DR: [id number] [facility] [address]. [place], [place] [address] [id number] I MR#: [id number] Acc #: [id number] NAME: HAYDE WHITLOCK. : 1930 SEX: F STUDY DATE/TIME: 01/04/2017 21:34 UNIT: [address] ROOM: [facility] STUDY DESCRIPTION: MR Brain Wo Contrast Attending Physician: Laine Blanco M.D. Ordering Physician: Laine Blanco M.D. Primary Care Physician: Ari Johnson M.D. MRI CENTER REPORT This report is preliminary unless electronic signature is present. EXAM Unenhanced brain MRI 01/04/2017 PROCEDURE Routine unenhanced brain MRI. COMPARISON Head CT same date. HISTORY Confusion with aphasia since this morning. FINDINGS There is no MR evidence of acute ischemia. There is no restricted diffusion. There is age-appropriate volume loss and moderate nonspecific white matter change but no hemorrhage or hydrocephalus or extraaxial fluid collection. Normal flow voids are seen in the cerebral vessels. The extracranial structures are unremarkable and bone marrow signal is normal. IMPRESSION Moderate small vessel type white matter change and volume loss but no MR evidence of acute ischemia. No definite acute abnormality. Dictated by... Jose Posey M.D. THIS IS AN ELECTRONICALLY VERIFIED REPORT Jose Posey M.D. at 01/05/2017 3:56 PM AVNI/williams TD: 01/05/2017 07:55 JOB #: [id number] [facility] A Service [facility] RADIOLOGY TEXT RESULTS PATIENT: HAYDE WHITLOCK LOCATION: [facility] 334 : 30 UNIT #: [id number] AGE: [address]: Fam Lugo MD SEX: F ORDER DR: MRI CENTER REPORT Page 1 of 1 COPY
--- NOTE | ~2017-01-04 | HP ---
Unit #: [id number] #: [id number] Patient: HAYDE WHITLOCK [id number] [facility]. [place], [place] [address] [id number] E MR#: [id number] NAME: HAYDE WHITLOCK. ROOM: Age: 86 Sex: F Admission Date: 01/04/2017 : 1930 Attending Physician: Cecile Morales M.D. Primary Care Physician: Ari Johnson M.D. HISTORY AND PHYSICAL CHIEF COMPLAINT Altered mental status. HISTORY OF PRESENT ILLNESS The patient is an 86-year-old female with past medical history of diabetes, hypertension, hyperlipidemia, coronary artery disease, breast cancer, who presented to the emergency department for evaluation of the above. The patient was apparently in her usual state of health until the morning of admission when she was found by her granddaughter in bed confused. She was noted to have abnormal speech and was not acting normally. The patient's granddaughter apparently brings her child to her grandmother's house. The patient actually gets her great grandson on the bus each day. EMS was called. She was brought to the emergency department for further evaluation. Upon arrival in the emergency department, the patient's pulse and blood pressure were 79 and 216/[address] of the head was done and showed nothing acute. She was not a CODE Stroke due to unknown last normal. She is being admitted to [facility] for evaluation and further treatment. Of note, potassium is 2.9. She was given a total of 40 mEq of potassium in the emergency department. PAST MEDICAL HISTORY 1. Admission to [facility] within the past month or two for hypokalemia. 2. Coronary artery disease status post coronary artery bypass grafting. 3. Hypertension. 4. Hyperlipidemia. 5. Diabetes. 6. Breast cancer status post mastectomy. 7. Peripheral arterial disease status post carotid endarterectomy. PAST SURGICAL HISTORY 1. Coronary artery bypass grafting. 2. Mastectomy. 3. Carotid endarterectomy. SOCIAL HISTORY The patient lives alone. She drives. She typically walks without assistance. She quit smoking in 1981. There is no alcohol use. Unit #: [id number] #: [id number] Patient: CHINYERE,HAYDE A FAMILY HISTORY Notable for her mother dying at the age of 94. Her at the age of 65 of a myocardial infarction. ALLERGIES Iodine. HOME MEDICATIONS 1. Atenolol. 2. Lantus. 3. Metformin. 4. Chlorthalidone. 5. Amlodipine. 6. Potassium. 7. Simvastatin. Home medications will need to be reviewed and verified. REVIEW OF SYSTEMS A complete review of systems is unobtainable from the patient but negative except as indicated in the HPI per the patient's granddaughter. PHYSICAL EXAMINATION GENERAL APPEARANCE: The patient is a female who is sleeping but wakes to physical stimuli. VITAL SIGNS: Temperature 97.9. Pulse 79. Respirations 26. Blood pressure 216/71, most recently, 172/73. Oxygen saturation 100% on room air. HEENT: The head is atraumatic. Mucous membranes are moist. NECK: Supple. Trachea is midline. CARDIOVASCULAR: Regular rate and rhythm. LUNGS: Clear to auscultation bilaterally with no increased work of breathing. ABDOMEN: Soft, nontender with bowel sounds present in all four quadrants. EXTREMITIES: Nontender with no pedal edema. NEUROLOGIC: The patient is able to answer some questions as yes, otherwise, words are not making sense. She follows some commands. She appears to have neglect involving the right upper extremity. PSYCHIATRIC: The patient is somewhat agitated when asked to different things. SKIN: Of examined areas is warm and dry. DIAGNOSTIC STUDIES LABORATORY: Comprehensive metabolic panel notable for potassium of 2.9, chloride 99, glucose 277. Urinalysis notable for 2+ protein, 500 glucose, 1+ blood. INR is one. Troponin is less than 0.05. Complete blood count is notable for MCV of 79.9. IMAGING: Chest x-ray: Cannot exclude edema. CT of the head shows nothing acute. CARDIOVASCULAR: EKG shows normal sinus rhythm with sinus arrhythmia and a rate of 76 beats per minute. ASSESSMENT The patient is an 86-year-old female with: 1. Acute cerebrovascular accident. 2. Hypokalemia. The patient received 40 mEq of potassium in the Unit #: [id number] #: [id number] Patient: HAYDE WHITLOCK emergency department. 3. Uncontrolled diabetes with a glucose of 277. 4. Hypertension. 5. Hyperlipidemia. 6. Coronary artery disease status post coronary artery bypass grafting. 7. Breast cancer status post mastectomy. 8. Former smoker. PLAN 1. Admit to intermediate level. 2. NPO until speech evaluation. 3. Speech Therapy to evaluate and treat. 4. Neuro checks q.4 hours. 5. MRI of the brain without contrast. 6. CT angio of the head and neck. 7. Stroke protocol per Neurology. 8. Consult Dr. Dunaway regarding cerebrovascular accident. 9. Aspirin per rectum if not already given. 10. Check magnesium level. 11. Potassium and magnesium protocol. 12. Serial cardiac enzymes. 13. Hemoglobin A1C. 14. Low dose sliding scale insulin with Accu-Cheks. 15. SCDs. 16. PRN Zofran. 17. Repeat labs in the morning. 18. Additional workup and consultants based on above. Dictated by Ramesh Floyd/baldemar TD: 01/04/2017 12:52 JOB #: [id number] HISTORY AND PHYSICAL Page 1 of 1 X Laine Blanco MD X HISTORY AND PHYSICAL
--- NOTE | ~2017-01-04 | CT71 ---
[facility] A Service of [facility] RADIOLOGY TEXT RESULTS PATIENT: HAYDE WHITLOCK LOCATION: [facility] 334-01 : 30 UNIT #: [id number] AGE: [address]: Laine Blanco MD SEX: F ORDER DR: [id number] [facility] [address] [place], [place] [address] [id number] E MR#: [id number] Acc #: [id number] NAME: HAYDE WHITLOCK. : 1930 SEX: F STUDY DATE/TIME: 01/04/2017 9:41 UNIT: [facility] ROOM: STUDY DESCRIPTION: CT Head Wo Contrast Attending Physician: Cecile Morales M.D. Ordering Physician: Cecile Morales M.D. Primary Care Physician: Ari Johnson M.D. MEDICAL IMAGING REPORT This report is preliminary unless electronic signature is present EXAM CT head, 01/04/2017 HISTORY Confusion. Normally alert and oriented x 4. Altered mental status since yesterday. Right-sided weakness. Aphasia. Confusion since 01/03/2017. TECHNIQUE This CT exam was performed with one or more of the following radiation dose reduction techniques: automatic exposure control, adjustment of mA and/or kV according to patient size, and iterative reconstruction. FINDINGS CT head performed skull base through vertex without intravenous contrast. Comparison 12/05/2016. Brainstem is unremarkable. The cerebellum is normal in appearance. The cerebral hemispheres show overall preservation of fried matter-white matter differentiation. No hemorrhage. Periventricular and deep white matter tract hypodensities most consistent with sequelae of chronic microvascular ischemia. Similar appearance on prior examination. Midline structures are nondisplaced. No acute-appearing basal ganglia abnormality. Ventricles, cisterns and sulci show mild generalized enlargement consistent with mild generalized atrophy. There is no intra or extraaxial mass effect or abnormal intracranial fluid collection. There are cavernous carotid and distal vertebral arterial calcifications. The intraorbital soft tissues are unremarkable. The visualized paranasal sinuses and mastoid air cells show mucosal thickening ethmoid air cells and sphenoid sinus. No evidence of acute sinusitis. No fracture. IMPRESSION 1. No clearly acute abnormality is seen in the brain. If the patient has ongoing neurologic symptoms, followup imaging would be recommended, preferably with MRI if the patient is a candidate. [facility] A Service of [facility] & [facility] RADIOLOGY TEXT RESULTS PATIENT: HAYDE WHITLOCK LOCATION: [facility] 334-01 : 30 UNIT #: [id number] AGE: [address]: Laine Blanco MD SEX: F ORDER DR: 2. Mild generalized atrophy. 3. Periventricular and deep white matter tract probable sequelae of chronic microvascular ischemia. 4. Cavernous carotid and distal vertebral arterial calcifications. 5. Mild mucosal thickening ethmoid and sphenoid sinuses. No indication of acute sinusitis. Dictated by... Norris Ga M.D. THIS IS AN ELECTRONICALLY VERIFIED REPORT Norris Ga M.D. at 01/04/2017 6:14 PM CASS/simba TD: 01/04/2017 12:15 JOB #: [id number] MEDICAL IMAGING REPORT Page 1 of 1 COPY
--- NOTE | ~2017-01-04 | EE ---
Unit #: [id number] #: [id number] Patient: HAYDE WHITLOCK [id number] [address] [address] [id number] I MR#: [id number] NAME: HAYDE WHITLOCK. : 1930 SEX: F STUDY DATE/TIME: 01/05/2017 UNIT: C3A PCU ROOM: [address] [place] [address] DESCRIPTION: EEG Attending Physician: Fam Lugo M.D. Primary Care Physician: Ari Johnson M.D. NEURODIAGNOSTICS REPORT CHIEF COMPLAINT Confusion and aphasia. DESCRIPTION EEG was obtained in the awake and drowsy states using the 10-20 international lead placement system with photic stimulation. EEG showed well organized 8 Hz range background activity from the right hemisphere. The left hemisphere background activity was in the 7 Hz range. Response to photic stimulation was adequate. There were no epileptiform discharges present. IMPRESSION Abnormal EEG consistent with mild left hemispheric dysfunction. Clinical correlation is advised. Dictated by... Ramesh Degroot/reba TD: 01/06/2017 07:33 JOB #: [id number] NEURODIAGNOSTICS REPORT Page 1 of 1 X Anabell Vivas MD NEURODIAGNOSTICS REPORT
[2017-01-04 09:47] LABS: URINE SOURCE CLEAN CATCH
[2017-01-04 09:51] LABS: URINE APPEARANCE CLEAR; URINE BILIRUBIN NEG (NEG); URINE BLOOD 1+ (NEG); URINE COLOR YELLOW; URINE GLUCOSE 500 MG/DL (NEG); URINE KETONE NEG (NEG); URINE LEUKOCYTE ESTERASE NEG (NEG); URINE NITRATE NEG (NEG); URINE PH 8.5 (5-8); URINE PROTEIN 2+ (NEG); URINE SPECIFIC GRAVITY 1.013 (1.003-1.035); URINE UROBILINOGEN 0.2 MG/DL (NEG)
[2017-01-04 09:53] LABS: BASOPHIL% 0.3 % (0-2.5); EOSINOPHIL% 0.1 % (0.0-7.0); HEMATOCRIT 41.2 % (35.0-45.0); HEMOGLOBIN 13.9 gm/dL (12.0-16.0); LYMPHOCYTE# 1.6 X10e3 (1.0-3.5); LYMPHOCYTE% 15.8 % (17.0-45.0); MEAN CELL VOLUME 79.9 FL (83-96); MEAN CORPUSCULAR HGB CONC 33.8 g/dL (30-36); MEAN PLATELET VOLUME 8.5 FL (6.5-11.5); MONOCYTE# 0.5 X10e3 (0-1.0); MONOCYTE% 4.7 % (3.0-12.0); NEUTROPHIL# 7.9 X10e3 (1.5-7.1); NEUTROPHIL% 79.1 % (40-75); PLATELET COUNT 264 X10e3 (140-420); RED BLOOD COUNT 5.15 X10e (3.90-5.30); RED CELL DISTRIBUTION WIDTH 14.6 % (11.0-15.5)
[2017-01-04 09:54] LABS: URINE BACTERIA AUWI NEG (NEGATIVE); URINE SQUAMOUS EPITHELIAL CELL OCC /[HPF]; UWBCS1 AUWI 0-2 (0-5)
[2017-01-04 10:00] LABS: POC - CKMB 1.8 ng/mL (0.0-7.9); POC - TROPONIN <0.05 ng/mL (<=0.05)
[2017-01-04 10:00] LABS: DIFF IND NO
[2017-01-04 10:09] LABS: PARTIAL THROMBOPLASTIN TIME 25.8 SECONDS (23.5-31.3); PROTHROMBIN TIME (PATIENT) 10.4 SECONDS (9.6-11.5)
[2017-01-04 10:16] LABS: CULTURE INDICATED? NO
[2017-01-04 10:17] LABS: U HYALINE CASTS AUWI 0-2 /[LPF]; URBCS1 AUWI 0-2 /[HPF] (0-2)
[2017-01-04 10:26] LABS: ALBUMIN SERUM 3.8 g/dL (3.5-5.0); BILIRUBIN, DIRECT 0.2 mg/dL (0.0-0.2); BILIRUBIN,INDIRECT 0.4 mg/dL (0.0-0.9); BILIRUBIN,TOTAL 0.6 mg/dL (0.2-2.0); BUN/CREATININE RATIO 15.83; CALCIUM SERUM 9.3 mg/dL (8.4-10.2); CREATININE SERUM 1.2 mg/dL (0.6-1.4); GLOM FILT RATE Estimated 40.9 mL/min (>60); POTASSIUM 2.9 mmol/L (3.5-5.1); PROTEIN TOTAL SERUM 7.3 g/dL (6.0-8.3)
[2017-01-04 11:49] LABS: POC - CKMB 1.5 ng/mL (0.0-7.9); POC - TROPONIN <0.05 ng/mL (<=0.05)
[2017-01-04] MEDS ORDERED: SIMVASTATIN40 MG PO (12:44)
[2017-01-04] MEDS ORDERED: KCL PO (12:44)
[2017-01-04] MEDS ORDERED: LANTUS100 U/ML SUBQ (12:44)
[2017-01-04 13:00] LABS: ARTERIAL BLD GAS O2 SATURATION 98.3 % (90.0-100.0); ARTERIAL BLOOD GAS CARBOXY HB 0.6 %sat (0.0-9.0); ARTERIAL BLOOD GAS HCO3 28.7 mmol/L; ARTERIAL BLOOD GAS MET HB 0.5 %sat (0.0-2.0); ARTERIAL BLOOD GAS PCO2 41.2 mmHg (35.0-45.0); ARTERIAL BLOOD GAS pH 7.451 (7.350-7.450)
[2017-01-04 13:01] LABS: ARTERIAL BLOOD GAS ALLEN TEST NORMAL; ARTERIAL BLOOD GAS ART SITE RIGHT RADIAL; ARTERIAL BLOOD GAS DELIVERY NASAL CANNULA; ARTERIAL DRAW? YES
[2017-01-04 14:09] LABS: CHOLESTEROL 178 mg/dL (0-200); HDL CHOLESTEROL 54 mg/dL (35-95); LDL CHOLESTEROL 83 mg/dL (-130); LDL/HDL RATIO 2 RATIO (0-4); TRIGLYCERIDES 203 mg/dL (10-160)
[2017-01-04 18:14] LABS: CK TOTAL 59 IU/L (26-140)
[2017-01-05 00:26] LABS: CK TOTAL 49 IU/L (26-140)
[2017-01-05 05:24] LABS: HEMATOCRIT 39.4 % (35.0-45.0); HEMOGLOBIN 12.8 gm/dL (12.0-16.0); MEAN CELL VOLUME 81.8 FL (83-96); MEAN CORPUSCULAR HEMOGLOBIN 26.6 PG (28-34); MEAN CORPUSCULAR HGB CONC 32.5 g/dL (30-36); MEAN PLATELET VOLUME 8.8 FL (6.5-11.5); RED BLOOD COUNT 4.82 X10e (3.90-5.30); RED CELL DISTRIBUTION WIDTH 14.5 % (11.0-15.5); WHITE BLOOD COUNT 10.2 X10e3 (4.0-10.5)
[2017-01-05 05:37] LABS: PROTHROMBIN TIME (PATIENT) 10.6 SECONDS (9.6-11.5)
[2017-01-05 06:26] LABS: ALBUMIN SERUM 3.1 g/dL (3.5-5.0); BILIRUBIN,TOTAL 0.8 mg/dL (0.2-2.0); CALCIUM SERUM 8.5 mg/dL (8.4-10.2); POTASSIUM 3.5 mmol/L (3.5-5.1); PROTEIN TOTAL SERUM 5.8 g/dL (6.0-8.3)
[2017-01-06 06:08] LABS: HEMATOCRIT 37.7 % (35.0-45.0); HEMOGLOBIN 12.4 gm/dL (12.0-16.0); MEAN CELL VOLUME 81.2 FL (83-96); MEAN CORPUSCULAR HEMOGLOBIN 26.8 PG (28-34); MEAN PLATELET VOLUME 8.7 FL (6.5-11.5); RED BLOOD COUNT 4.64 X10e (3.90-5.30); RED CELL DISTRIBUTION WIDTH 14.6 % (11.0-15.5); WHITE BLOOD COUNT 8.5 X10e3 (4.0-10.5)
[2017-01-06 06:54] LABS: CALCIUM SERUM 8.3 mg/dL (8.4-10.2); POTASSIUM 3.4 mmol/L (3.5-5.1)
[2017-01-07 06:03] LABS: HEMATOCRIT 34.7 % (35.0-45.0); HEMOGLOBIN 11.2 gm/dL (12.0-16.0); MEAN CELL VOLUME 82.4 FL (83-96); MEAN CORPUSCULAR HEMOGLOBIN 26.6 PG (28-34); MEAN CORPUSCULAR HGB CONC 32.3 g/dL (30-36); MEAN PLATELET VOLUME 8.9 FL (6.5-11.5); RED BLOOD COUNT 4.21 X10e (3.90-5.30); RED CELL DISTRIBUTION WIDTH 14.1 % (11.0-15.5)
[2017-01-07 06:08] LABS: WHITE BLOOD COUNT 12.8 X10e3 (4.0-10.5)
[2017-01-07 06:43] LABS: BUN/CREATININE RATIO 16.36; CALCIUM SERUM 8.4 mg/dL (8.4-10.2); CREATININE SERUM 1.1 mg/dL (0.6-1.4); GLOM FILT RATE Estimated 45.4 mL/min (>60)
[2017-01-07 06:48] LABS: POTASSIUM 2.8 mmol/L (3.5-5.1)
[2017-01-08 08:32] LABS: BUN/CREATININE RATIO 16.66; CREATININE SERUM 0.9 mg/dL (0.6-1.4); GLOM FILT RATE Estimated 57.9 mL/min (>60); MAGNESIUM 1.7 mg/dL (1.6-3.0); POTASSIUM 3.5 mmol/L (3.5-5.1)
[2017-01-09 06:57] LABS: MAGNESIUM 2.1 mg/dL (1.6-3.0); POTASSIUM 3.3 mmol/L (3.5-5.1)
[2017-01-09] MEDS ORDERED: AMIODARONE PO (17:18)
[2017-01-09] MEDS ORDERED: TOPAMAX25 MG PO (17:19)
[2017-01-09] MEDS ORDERED: DULCOLAX10 MG PR (17:22)
[2017-01-09] MEDS ORDERED: CATAPRES0.1 M1 (17:23)
[2017-01-09] MEDS ORDERED: CLONIDINE HCL0.1 MG PO (17:24)
[2017-01-09] MEDS ORDERED: HYDRALAZINE HCL50 MG PO (17:25)
[2017-01-14] MEDS ORDERED: AMLODIPINE BESYL5 MG PO (16:16)
[2017-01-14] MEDS ORDERED: BAYER ASPIRIN325 M1 PO (16:17)
[2017-01-14] MEDS ORDERED: DULCOLAX10 MG PR (16:17)
[2017-01-14] MEDS ORDERED: HYDRALAZINE HCL50 MG PO (16:18)
[2017-01-14] MEDS ORDERED: CATAPRES0.1 MG PO (16:18)
[2017-01-14] MEDS ORDERED: CENTRUM SILVER PO (16:19)
[2017-01-14] MEDS ORDERED: NITROGLYGERIN0.4 MG SL (16:19)
[2017-01-14] MEDS ORDERED: SIMVASTATIN40 MG PO (16:21)
[2017-01-14] MEDS ORDERED: K-TAB ER20 MEQ PO (16:21)
[2017-01-15] MEDS ORDERED: HCTZ PO (11:26)
[2017-01-15] MEDS ORDERED: AMIODARONE (11:27)
== END 2017-01-09 18:03 | disposition home health service (06) | DRG 103 ==
LOC: CED 08:56 → CEDOF 12:10 → CED 12:23 → C3A PCU 16:06 → CEDOF 16:06 → C3A PCU 16:06
PROVIDERS: Emergency Medicine; Family Medicine; Internal Medicine; Psychiatry & Neurology Neurology
PROC: B24BZZZ Ultrasonography of Heart with Aorta (ICD-10-PCS; principal; 2017-01-05)
DX: G43.109 Migraine with aura, not intractable, without status migrainosus (principal); E11.65 Type 2 diabetes mellitus with hyperglycemia; G40.109 Localization-related (focal) (partial) symptomatic epilepsy and epileptic syndromes with simple partial seizures, not intractable, without status epilepticus; I16.9 Hypertensive crisis, unspecified; R47.01 Aphasia; Z79.4 Long term (current) use of insulin; E78.5 Hyperlipidemia, unspecified; I25.10 Atherosclerotic heart disease of native coronary artery without angina pectoris; Z95.1 Presence of aortocoronary bypass graft; Z87.891 Personal history of nicotine dependence; E87.6 Hypokalemia; I44.7 Left bundle-branch block, unspecified; R00.1 Bradycardia, unspecified; I65.22 Occlusion and stenosis of left carotid artery; I70.8 Atherosclerosis of other arteries
CPT/HCPCS: 36600; 70450; 70496; 70498; 70544; 70549; 70551; 71010; 71250; 80048; 80053; 80061; 80076; 81003; 82550; 82553; 82803; 82947; 83036; 83605; 83735; 83880; 84132; 84443; 84484; 85025; 85027; 85610; 85730; 86140; 92523-GN; 92610; 93005; 93306; 94760; 95816; 96365; 96375; 97116; 97162; 97166; 97530; 97535; 99285; A9577; G8978-GP; G8979-GP; G8987-GO; G8988-GO; G8989-GO; G8996-GN; G8997-GN; G8998-GN; J1815; J2405; J3475; Q9967

== ENCOUNTER 2017-01-16 03:50 | Emergency (ER) | payer OTHER ==
--- NOTE | ~2017-01-16 | EKG ---
PATIENT: HAYDE WHITLOCK UNIT #: [id number] Ventricular Rate: 53 BPM Atrial Rate: 53 BPM P-R Interval: 180 ms QRS Duration: 102 ms Q-T Interval: 416 ms QTC Calculation(Bezet): 390 ms P [place]: 55 degrees Calculated R [place]: 6 degrees Calculated T [place]: 17 degrees Diagnosis Line: Sinus bradycardia with marked sinus arrhythmia Diagnosis Line: Moderate voltage criteria for LVH, may be normal Diagnosis Line: variant Diagnosis Line: Borderline ECG Diagnosis Line: No previous ECGs available Diagnosis Line: Confirmed by JOSE DE JESUS KELLY MD ([id number]) on Diagnosis Line: 01/16/2017 8:11:00 AM INTERPRETING MD: LETICIA CARPENTER
[~2017-01-16 03:50] MED LIST changes: +AMIODARONE; +AMIODARONE PO; +CATAPRES0.1 M1; +CATAPRES0.1 MG PO; +CENTRUM SILVER PO; +CLONIDINE HCL0.1 MG PO; +DULCOLAX10 MG PR; +HCTZ PO; +HYDRALAZINE HCL50 MG PO; +K-TAB ER20 MEQ PO; +KCL PO; +LANTUS100 U/ML SUBQ; +NITROGLYGERIN0.4 MG SL; +SIMVASTATIN40 MG PO; +TOPAMAX25 MG PO
[2017-01-16 04:52] LABS: BASOPHIL% 0.6 % (0-2.5); EOSINOPHIL# 0.1 X10e3 (0-0.7); EOSINOPHIL% 0.9 % (0.0-7.0); HEMATOCRIT 34.2 % (35.0-45.0); HEMOGLOBIN 11.2 gm/dL (12.0-16.0); LYMPHOCYTE% 25.7 % (17.0-45.0); MEAN CELL VOLUME 82.4 FL (83-96); MEAN CORPUSCULAR HGB CONC 32.8 g/dL (30-36); MEAN PLATELET VOLUME 8.3 FL (6.5-11.5); MONOCYTE# 0.7 X10e3 (0-1.0); MONOCYTE% 9.3 % (3.0-12.0); NEUTROPHIL# 4.8 X10e3 (1.5-7.1); NEUTROPHIL% 63.5 % (40-75); PLATELET COUNT 252 X10e3 (140-420); RED BLOOD COUNT 4.15 X10e (3.90-5.30); RED CELL DISTRIBUTION WIDTH 15.2 % (11.0-15.5); WHITE BLOOD COUNT 7.6 X10e3 (4.0-10.5)
[2017-01-16 04:55] LABS: DIFF IND NO
[2017-01-16 04:58] LABS: POC - CKMB <1.0 ng/mL (0.0-7.9); POC - TROPONIN <0.05 ng/mL (<=0.05)
[2017-01-16 05:28] LABS: BUN/CREATININE RATIO 12.72; CALCIUM SERUM 8.9 mg/dL (8.4-10.2); CREATININE SERUM 1.1 mg/dL (0.6-1.4); GLOM FILT RATE Estimated 45.4 mL/min (>60)
[2017-01-16 07:19] LABS: POC - CKMB <1.0 ng/mL (0.0-7.9); POC - TROPONIN <0.05 ng/mL (<=0.05)
== END 2017-01-16 08:27 | disposition home or self-care (01) ==
LOC: CED 03:50
PROVIDERS: Emergency Medicine
DX: M79.602 Pain in left arm (principal); E87.6 Hypokalemia; E78.5 Hyperlipidemia, unspecified; I10 Essential (primary) hypertension; E11.9 Type 2 diabetes mellitus without complications; Z88.8 Allergy status to other drugs, medicaments and biological substances; Z79.899 Other long term (current) drug therapy
CPT/HCPCS: 36415; 80048; 82553; 84484; 85025; 93005; 99283

== ENCOUNTER 2017-02-23 12:20 | Inpatient (IN) | payer OTHER ==
--- NOTE | ~2017-02-23 | HP ---
Unit #: [id number] #: [id number] Patient: HAYDE WHITLOCK [id number] [address] [place], [place] [address] [id number] I MR#: [id number] NAME: HAYDE WHITLOCK. ROOM: 96690 Age: 86 Sex: F Admission Date: 02/23/2017 : 1930 Attending Physician: Reyes Shore M.D. Primary Care Physician: Ari Johnson M.D. HISTORY AND PHYSICAL CHIEF COMPLAINT Bilateral arm weakness. HISTORY OF PRESENT ILLNESS The patient is an 86-year-old female who presents to [facility] emergency department with complaint of arm weakness. She states that the weakness is bilateral, developed acutely at 10:30 this morning, it was associated with bilateral hand numbness. She denies vision changes, she denies leg weakness, no chest pain, no shortness of breath. She states she did have an associated headache in what appears to be the occipital area bilaterally. PAST MEDICAL HISTORY 1. Hypertension. 2. Coronary artery disease, status post CABG. 3. Breast cancer, status post mastectomy. 4. Hyperlipidemia. 5. Diabetes. 6. Peripheral arterial disease, status post carotid endarterectomy. HOME MEDICATIONS 1. Hydralazine 50 mg p.o. b.i.d. 2. Norvasc 10 mg p.o. h.s. 3. Catapres 0.1 mg p.o. t.i.d. 4. Glucophage 500 mg p.o. b.i.d. 5. Klor-Con 40 mEq p.o. daily. 6. Benazepril 10 mg p.o. daily. 7. Chlorthalidone 25 mg p.o. daily. 8. Hydrochlorothiazide 25 mg p.o. daily. 9. Nitroglycerin 0.4 mg sublingual every 5 minutes p.r.n. chest pain. 10. Zocor 40 mg p.o. daily. 11. Megace 10 mL p.o. daily. ALLERGIES 1. Iodine. 2. Some questionable latex allergy. SOCIAL HISTORY Patient lives alone, drives. No tobacco since 1981. No alcohol or illicit drug use. FAMILY HISTORY Reviewed and noncontributory in this 86-year-old female. Unit #: [id number] #: [id number] Patient: HAYDE WHITLOCK A REVIEW OF SYSTEMS A 10-point review of systems was obtained and negative except as per HPI. PHYSICAL EXAMINATION VITAL SIGNS: Temperature 97.7, pulse 65, blood pressure 189/58. GENERAL: This is an 86-year-old female in no acute distress who appears stated age. HEENT: Pupils equally round. Extraocular movements are intact. Mucous membranes are dry. NECK: Supple. No JVD, no lymphadenopathy. HEART: Regular rate and rhythm, no murmurs, or rubs. LUNGS: Clear to auscultation bilaterally. ABDOMEN: Nontender, nondistended. Positive bowel sounds. EXTREMITIES: No clubbing, cyanosis, or edema. Warm and dry. PSYCHIATRIC: Alert and oriented x3. Affect is appropriate. NEUROLOGIC: Cranial nerves II-XII are intact grossly. The patient moves all extremities equally and with purpose. SKIN: No rashes, bruises, or ulcers. MUSCULOSKELETAL: No muscle or joint pain, no muscle or joint swelling. DIAGNOSTIC STUDIES LABORATORY: Glucose 186, creatinine 1.1 which appears to be her baseline. CBC is normal. UA shows 1+ leukocyte esterase, 2+ protein, 10-25 wbc's but no bacteria. IMAGING: CT head without shows no acute process. ASSESSMENT AND PLAN 1. Hypertensive urgency. The patient was treated with clonidine in the ER and her blood pressure has responded. I have added some as needed medication and will make some adjustments to her regimen. Clonidine causes significant rebound hypertension if dose is missed and I would like to see this patient's medications modified such that she no longer needs medication. She is on several partial doses as opposed to maximal optimum-type doses of mini medications. 2. Bilateral upper extremity weakness. It is unclear if this is secondary to hypertensive urgency or if this is secondary to her history of complicated migraines as was diagnosed by [facility] for this malady in November of this year or if this is a UTI. Treatment has been started for her UTI, cultures have been started. Given the bilateral nature of her weakness, stroke seems less likely and I have ordered a CT of her C-spine. 3. Urinary tract infection. Rocephin has been start and will follow the cultures. 4. Diabetes. Low-dose sliding scale insulin started. 5. Prophylaxis. The patient has been started on Lovenox. Dictated by Ramesh Brady/jelly Unit #: [id number] #: [id number] Patient: MELANIE WHITLOCKBETSY Dozier TD: 02/23/2017 20:39 JOB #: [id number] HISTORY AND PHYSICAL Page 1 of 1 X Reyes Shore MD X HISTORY AND PHYSICAL
--- NOTE | ~2017-02-23 | CT71 ---
[facility] A Service of [facility] RADIOLOGY TEXT RESULTS PATIENT: HAYDE WHITLOCK LOCATION: [facility] 563-01 : 30 UNIT #: [id number] AGE: [address]: Geovanna Hanna MD SEX: F ORDER DR: [id number] [facility] [address] [place] [address] [place], [place] [address] [id number] E MR#: [id number] Acc #: [id number] NAME: HAYDE WHITLOCK. : 1930 SEX: F STUDY DATE/TIME: 02/23/2017 13:25 UNIT: NATALIIA ROOM: STUDY DESCRIPTION: CT Head Wo Contrast Attending Physician: Rei Maza Ordering Physician: Sajan Avina M.D. Primary Care Physician: Ari Johnson M.D. MEDICAL IMAGING REPORT This report is preliminary unless electronic signature is present EXAM Noncontrast CT head DATE 02/23/2017 HISTORY 86-year-old female with complaints of weakness, dizziness and lightheadedness with mild migraine headaches since 01/03/2017. Additional stated history of hypertension and diabetes. COMPARISON Noncontrast CT head 01/14/2017. TECHNIQUE This CT exam was performed with one or more of the following radiation dose reduction techniques: automatic exposure control, adjustment of mA and/or kV according to patient size, and iterative reconstruction. FINDINGS Chronic-appearing lacunar infarcts within the left basal ganglia without significant change from prior. There is a mild generalized parenchymal atrophy. Periventricular and deep white matter hypodensities extending to the centrum semiovale appears similar to 01/14/2017, are nonspecific, but are favored to represent changes of moderate to chronic microvascular disease. The fried matter - white matter junction distinction, however, appears preserved without convincing CT evidence of acute or evolving infarct. No mass lesion, mass effect or midline shift is seen. Mild right vertebral artery calcifications are present. Moderate bilateral intracranial carotid artery calcifications are present. The mastoid air cells are clear. The major paranasal sinuses appear clear. No acute calvarial abnormalities are identified. [facility] A Service of [facility] RADIOLOGY TEXT RESULTS PATIENT: HAYDE WHITLOCK LOCATION: [facility] 563-01 : 30 UNIT #: [id number] AGE: [address]: Geovanna Hanna MD SEX: F ORDER DR: Not mentioned above, there are patchy areas of hypodensity within the lisa to the right of midline which appears similar to the 01/14/2017 examination, and are also thought to represent changes of chronic microvascular disease. IMPRESSION 1. Moderate chronic microvascular disease changes with chronic-appearing lacunar type infarcts in the left basal ganglia and the lisa to the right of midline. Scattered microvascular disease changes elsewhere within the deep white matter. 2. No acute findings or significant change since 01/14/2017. Dictated by... Elly Puga M.D. THIS IS AN ELECTRONICALLY VERIFIED REPORT Elly Puga M.D. at 02/24/2017 9:[address] [facility]/sivan TD: 02/23/2017 19:02 JOB #: [id number] MEDICAL IMAGING REPORT Page 1 of 1 COPY
--- NOTE | ~2017-02-23 | CT52 ---
[facility] A Service of [facility] & [facility] RADIOLOGY TEXT RESULTS PATIENT: HAYDE WHITLOCK LOCATION: [facility] 563- : 30 UNIT #: [id number] AGE: [address]: Geovanna Hanna MD SEX: F ORDER DR: [id number] [facility] [address] [place], [place] [address] [id number] I MR#: [id number] Acc #: [id number] NAME: HAYDE WHITLOCK. : 1930 SEX: F STUDY DATE/TIME: 02/23/2017 18:51 UNIT: [facility] ROOM: [facility] STUDY DESCRIPTION: CT Cervical Spine Wo Cont Attending Physician: Geovanna Hanna M.D. Ordering Physician: Reyes Shore M.D. Primary Care Physician: Ari Johnson M.D. MEDICAL IMAGING REPORT This report is preliminary unless electronic signature is present EXAM CT of the cervical spine without contrast dated 02/23/2017 COMPARISON CTA head and neck with contrast dated 01/06/2017. HISTORY Upper extremity weakness and dizziness with lightheadedness since 01/03/2017. FINDINGS CT of the cervical spine was obtained without contrast in the axial plane followed by sagittal and coronal reformats. This CT examination was performed with one or more of the following radiation dose reduction techniques: automatic exposure control, adjustment of mA and/or kV according to patient size, and iterative reconstruction. No acute displaced fracture or subluxation. Anterior and posterior endplate osteophytes are noted particularly at C4-5 and C5-6. There is loss of disc height at C5-6. C1-2 and C7-T1 junctions are intact. C2-3: Disc osteophyte complex with mild bilateral facet changes. No canal stenosis or neural foraminal narrowing. C3-4: Disc osteophyte complex with severe left and kzvdetlq-su-qodsqc right facet hypertrophic change. Bilateral uncinate spurs are noted, worse in the left with adse-bz-enuohhms left neural foraminal narrowing. Borderline size canal is seen. C4-5: Disc osteophyte complex which is most prominent in the center. There is mild canal stenosis without significant neural foraminal narrowing. [facility]. [facility] A Service of [facility] & [facility] RADIOLOGY TEXT RESULTS PATIENT: HAYDE WHITLOCK LOCATION: [facility] 563-01 : 30 UNIT #: [id number] AGE: [address]: Geovanna Hanna MD SEX: F ORDER DR: C5-6: Disc osteophyte complex with mild canal stenosis and mild superior right neural foraminal narrowing with a relatively patent inferior aspect. C6-7: Disc osteophyte complex with bilateral uncinate spurs particularly in the left with mild inferior left neural foraminal encroachment with relatively patent superior aspect. Borderline size canal. C7-T1: Disc osteophyte complex without canal stenosis or neural foraminal narrowing. Moderate bilateral facet changes. IMPRESSION 1. Degenerative changes are at multiple levels, relatively worse at C5-6 with mild canal stenosis. 2. Facet hypertrophic changes are at multiple levels, relatively worse in left C3-4 facet joint. 3. No acute displaced fracture or subluxation. Dictated by... Abhi Colon M.D. THIS IS AN ELECTRONICALLY VERIFIED REPORT Abhi Colon M.D. at 02/24/2017 11:46 AM JAYMIE/williams TD: 02/24/2017 09:24 JOB #: [id number] MEDICAL IMAGING REPORT Page 1 of 1 COPY
--- NOTE | ~2017-02-23 | MR32 ---
[facility] A Service of [facility] RADIOLOGY TEXT RESULTS PATIENT: HAYDE WHITLOCK LOCATION: [facility] 563 : 30 UNIT #: [id number] AGE: [address]: Geovanna Hanna MD SEX: F ORDER DR: [id number] [facility] [address] [place], [place] [address] [id number] I MR#: [id number] Acc #: [id number] NAME: HAYDE WHITLOCK. : 1930 SEX: F STUDY DATE/TIME: 02/24/2017 20:19 UNIT: [facility] ROOM: [facility] STUDY DESCRIPTION: MR Cervical Wo Contrast Attending Physician: Geovanna Hanna M.D. Ordering Physician: Nichelle Aj A.P.R.N. Primary Care Physician: Ari Johnson M.D. MRI CENTER REPORT This report is preliminary unless electronic signature is present. EXAM MR cervical spine INDICATIONS Bilateral upper extremity weakness. Bilateral upper extremity paresthesia. Reflex sympathetic dystrophy. TECHNIQUE Multiplanar MRI of the cervical spine without contrast. COMPARISON CT cervical spine dated 02/23/2017 FINDINGS Vertebral body height and alignment is unchanged. There is straightening of the normal cervical lordosis. No abnormal bone marrow signal. Signal characteristics of the posterior fossa and cervical spinal cord are within normal limits. There are multilevel degenerative changes, as detailed below. C2-3: The disc is narrowed; however, there is no significant disc protrusion. No neural foraminal or central canal stenosis. C3-4: There is a small broad-based disc osteophyte complex. No central canal stenosis. Facet arthropathy and uncovertebral hypertrophy results in a mild left neural foraminal stenosis. C4-5: There is a small broad-based disc protrusion centrally. This indents the anterior thecal sac, resulting in a mild central canal stenosis. Uncovertebral hypertrophy and facet arthropathy result in mild bilateral neural foraminal stenosis. C5-6: The C5 disc space is severely narrowed. There is a small [facility] A Service of [facility] RADIOLOGY TEXT RESULTS PATIENT: HAYDE WHITLOCK LOCATION: [facility] 563-01 : 30 UNIT #: [id number] AGE: [address]: Geovanna Hanna MD SEX: F ORDER DR: broad-based disc osteophyte complex resulting in mild central canal stenosis. There is mild facet arthropathy and mild uncovertebral hypertrophy; however, no significant neural foraminal stenosis. C6-7: There is a small broad-based disc osteophyte complex. This results in a mild central canal stenosis. T2 hyperintense signal within the posterior annulus is indicative of a small annular tear. Mild left neural foraminal stenosis due to facet arthropathy and uncovertebral hypertrophy. IMPRESSION 1. Mild multilevel degenerative changes throughout the cervical spine. There is mild central canal stenosis from C4-5 through C6-7. 2. Mild neural foraminal stenoses, as detailed above. 3. No acute findings in the cervical spine. Dictated by... Jori Nolan M.D. THIS IS AN ELECTRONICALLY VERIFIED REPORT Jori Nolan M.D. at 02/26/2017 1:03 AM Nighat TD: 02/25/2017 12:59 JOB #: [id number] MRI CENTER REPORT Page 1 of 1 COPY
--- NOTE | ~2017-02-23 | EKG ---
PATIENT: HAYDE WHITLOCK UNIT #: [id number] Ventricular Rate: 76 BPM Atrial Rate: 76 BPM P-R Interval: 186 ms QRS Duration: 90 ms Q-T Interval: 404 ms QTC Calculation(Bezet): 454 ms P [place]: 51 degrees Calculated R [place]: 7 degrees Calculated T [place]: 16 degrees Diagnosis Line: Normal sinus rhythm Diagnosis Line: Moderate voltage criteria for LVH, may be normal Diagnosis Line: variant Diagnosis Line: Borderline ECG Diagnosis Line: When compared with ECG of 16-JAN-2017 03:51, Diagnosis Line: T wave inversion less evident in Inferior leads Diagnosis Line: QT has lengthened Diagnosis Line: Confirmed by CHELSEY STAPLES MD ([id number]) on 02/23/2017 Diagnosis Line: 8:42:36 PM INTERPRETING MD: JHOAN CARPENTER
--- NOTE | ~2017-02-23 | DS ---
Unit #: [id number] #: [id number] Patient: HAYDE WHITLOCK [id number] [address] [place], [place] [address] [id number] I MR#: [id number] NAME: HAYDE WHITLOCK. ROOM: 563 Age: 86 Sex: F Admission Date: 02/23/2017 : 1930 Discharge Date: 02/25/2017 Attending Physician: Geovanna Hanna M.D. Primary Care Physician: Ari Johnson M.D. DISCHARGE SUMMARY REASON FOR ADMISSION Bilateral arm weakness. HISTORY OF PRESENT ILLNESS/HOSPITAL COURSE The patient is a very pleasant 86-year-old female who presented secondary to complaints of arm weakness and/or numbness and tingling in her upper extremities. She was subsequently admitted after it was noted her blood pressure was elevated and she was noted to be in hypertensive urgency. Please see H and P for details. Her blood pressure was appropriately treated and has at time of discharge currently stable at 144/59. In regards to her upper extremity weakness, the patient did undergo a CT cervical spine without contrast, that did reveal fairly chronic changes and degenerative changes, which were noted in multiple levels, worse at C5-6. There was hypertrophic changes worse at the C3-4 facet joint level. She also underwent a CT head noncontrast, which did not show any acute process. There was some moderate chronic microvascular changes, which were noted. Her initial urinalysis was positive. Urine culture did not show any acute bacterial growth. Hemoglobin at time of discharge is 11.8. Electrolytes are within normal limits. It has been noted that patient does have a slightly decreased creatinine at 1.5 with a GFR of 31, very age appropriate. Secondary to her upper extremity weakness, consultation was also placed to Dr. Dunaway of neurology services. The patient underwent an MRI of cervical spine yesterday. Results are currently pending. However, today the patient states that she feels otherwise well. She denies any acute symptoms. She states that she feels ready to go home, therefore, after seen by neurology later this afternoon, the patient should be stable for discharge, should her MRI show any abnormal findings. Consideration should be given for outpatient spine surgery evaluation and/or management. Also of note, the patient did undergo a 2D echocardiogram this hospitalization admission, which did show a normal EF of 50% to 55%. Mild aortic stenosis was noted. Moderate tricuspid regurgitation was noted. Otherwise was within normal range. FINAL DISCHARGE DIAGNOSES Unit #: [id number] #: [id number] Patient: HAYDE WHITLOCK 1. Bilateral upper extremity weakness now resolved. 2. Hypertensive urgency on admission now resolved. 3. Chronic headaches/migraines. 4. Coronary artery disease with a prior history of coronary artery bypass graft. 5. Moderate tricuspid regurgitation. 6. Prior history of breast carcinoma, status post mastectomy. 7. Hyperlipidemia. 8. Diabetes. 9. Prior history of peripheral arterial disease. DISCHARGE MEDICATIONS 1. Tylenol 650 mg p.o. q.6 p.r.n. headache. 2. Norvasc 10 mg p.o. q.h.s. 3. Hydrochlorothiazide 25 mg p.o. daily. 4. Zocor 40 mg p.o. daily. 5. Lotensin 20 mg p.o. daily. 6. Catapres 0.1 mg p.o. t.i.d. 7. Hydralazine 100 mg p.o. t.i.d. 8. Amaryl 2 mg p.o. daily with dinner. 9. Please note, patient's metformin was discontinued secondary to elevated creatinine. 10. Also notes, patient's state allergy to Topamax, therefore, that will not be given at the time of discharge. 11. Patient should have repeat BMP and CBC by her primary care physician within seven days. 1. Dictated by... Ramesh Moore/mar TD: 02/28/2017 14:32 JOB #: [id number] DISCHARGE SUMMARY Page 1 of 1 X Geovanna Hanna MD X DISCHARGE SUMMARY
--- NOTE | ~2017-02-23 | CT71 ---
[facility] A Service of [facility] & [facility] RADIOLOGY TEXT RESULTS PATIENT: HAYDE WHITLOCK LOCATION: [facility] 563-01 : 30 UNIT #: [id number] AGE: [address]: Geovanna Hanna MD SEX: F ORDER DR: [id number] [facility] [address] [place], [place] [address] [id number] I MR#: [id number] Acc #: [id number] NAME: HAYDE WHITLOCK. : 1930 SEX: F STUDY DATE/TIME: 02/24/2017 20:53 UNIT: [facility] ROOM: [facility] STUDY DESCRIPTION: CT Head Wo Contrast Attending Physician: Geovanna Hanna M.D. Ordering Physician: Angelica Not Listed Primary Care Physician: Ari Johnson M.D. MEDICAL IMAGING REPORT This report is preliminary unless electronic signature is present EXAM CT of the head 02/24/2017. HISTORY Evaluate for stroke. Dizzy, lightheaded, weakness for 2 days. Numbness, left hand, arm and thickness of tongue today starting at 18:40 hours 02/24/2017. TECHNIQUE CT head performed skull base through vertex without intravenous contrast. This CT exam was performed with one or more of the following radiation dose reduction techniques: automatic exposure control, adjustment of mA and/or kV according to patient size, and iterative reconstruction. COMPARISON Comparison 02/23/2017. FINDINGS No acute appearing brainstem abnormality. Previously seen right paracentral pontine lacunar infarct obscured by beam hardening artifact. The cerebellum and cerebral hemispheres show overall preservation of fried matter-white matter differentiation. Periventricular and deep white matter tract probable sequelae of chronic microvascular ischemia are stable. There is no evidence of acute cortical ischemia or hemorrhage. Focal lacunar infarct at the inferior left putamen less well visualized on today's examination. No acute-appearing basal ganglia abnormality. The midline structures are nondisplaced. The ventricles, cisterns, and sulci show minimal generalized enlargement, stable, consistent with generalized atrophy. There are cavernous carotid and distal vertebral arterial calcifications. No intra- or extraaxial mass effect. No abnormal intracranial fluid collection. The intraorbital soft tissues are unremarkable. Visualized paranasal sinuses and mastoid air cells are clear. [facility]. [facility] A Service of [facility] RADIOLOGY TEXT RESULTS PATIENT: HAYDE WHITLOCK LOCATION: [facility] 563-01 : 30 UNIT #: [id number] AGE: [address]: Geovanna Hanna MD SEX: F ORDER DR: IMPRESSION No acute abnormality is seen in the brain. There is no significant change compared to 02/23/2017. Please see details in body of report above. Dictated by... Norris Ga M.D. THIS IS AN ELECTRONICALLY VERIFIED REPORT Norris Ga M.D. at 02/27/2017 5:51 PM CASS/dorian TD: 02/25/2017 11:53 JOB #: [id number] MEDICAL IMAGING REPORT Page 1 of 1 COPY
--- NOTE | ~2017-02-23 | CR72 ---
[facility] A Service [facility] RADIOLOGY TEXT RESULTS PATIENT: HAYDE WHITLOCK LOCATION: [place] [address] : 30 UNIT #: [id number] AGE: [address]: Geovanna Hanna MD SEX: F ORDER DR: [id number] [facility] [address] [place], [place] [address] [id number] E MR#: [id number] #: [id number] NAME: HAYDE WHITLOCK. : 1930 SEX: F STUDY DATE/TIME: 02/23/2017 13:46 UNIT: [facility] ROOM: STUDY DESCRIPTION: CR Chest Single View Portable Attending Physician: Anson Maza M.D. Ordering Physician: Sajan Avina M.D. Primary Care Physician: Ari Johnson M.D. MEDICAL IMAGING REPORT This report is preliminary unless electronic signature is present EXAM Portable chest HISTORY Weakness and dizziness onset today. COMPARISON 01/04/2017 TECHNIQUE Single AP view of the chest was obtained. FINDINGS Single view of the chest shows elevation of the left diaphragm with mild volume loss at the left lung base. The right lung is clear. Heart size is normal and no abnormal mediastinal widening is seen. Vascular markings are normal and show improvement since the previous exam. IMPRESSION Eventration of the left diaphragm with mild volume loss at the left lung base. No active disease. Dictated by... Yaniv Gibbs M.D. THIS IS AN ELECTRONICALLY VERIFIED REPORT Yaniv Gibbs M.D. at 02/24/2017 7:15 AM AMAYA/chioma TD: 02/23/2017 18:02 JOB #: [id number] MEDICAL IMAGING REPORT [facility] A [facility] RADIOLOGY TEXT RESULTS PATIENT: HAYDE WHITLOCK LOCATION: [place] [address] : 30 UNIT #: [id number] AGE: [address]: Geovanna Hanna MD SEX: F ORDER DR: Page 1 of 1 COPY
--- NOTE | ~2017-02-23 | CO ---
Unit #: [id number] #: [id number] Patient: HAYDE WHITLOCK [id number] [address] [place], [place] [address] [id number] I MR#: [id number] NAME: HAYDE WHITLOCK ROOM: 563 Age: 86 Sex: F Admission Date: 02/23/2017 : 1930 Attending Physician: Geovanna Hanna M.D. Primary Care Physician: Ari Johnson M.D. Consultation Date: 02/24/2017 CONSULTATION REPORT REASON FOR CONSULTATION Coronary artery disease. 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 She was evaluated in December 2016 for symptoms similar to this episode and told she has complex migraines with partial seizures. An echocardiogram done at that time revealed a LV EF of 50% to 55%, LVH, mild and MR, and mild TR with RVSP 44 mmHg. She presented to the ER with reports of numbness and tingling in her fingers spreading into her bilateral arms, lips, and jaw. Accompanied with nausea and some dizziness. Denies chest pain, tightness, or pressure. Denies shortness of breath or dyspnea on exertion. She did have report of headache with the episode. Her blood pressure in the ER was 189/58. We were asked to see her to evaluate. Of note when she was in the hospital in December for this similar episode, she was found to have a second degree Wenckebach AV block. PAST MEDICAL HISTORY 1. Coronary artery disease, status post CABG x5 in 2002. 2. SD in 1981. 3. 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 4. Diabetes mellitus. 5. Hypertension. 6. Hyperlipidemia. 7. PAD, status post bilateral carotid endarterectomy in 2002. 8. Reformed smoker. 9. Complex migraines. 10. History of breast cancer, status post left mastectomy in 2004. 11. Echocardiogram, January 05, 2017. LV EF 50% to 55%. LVH. Mild and MR, moderate TR, RVSP 44 mmHg. PAST SURGICAL HISTORY 1. Left mastectomy for breast cancer in 2001. 2. Bilateral carotid endarterectomy in 2002. 3. CABG x5 in 2002. SOCIAL HISTORY The patient lives alone. She continues to drive. She babysits her grandchildren, states she is fairly active. She is a reformed smoker who quit in 1981. Denies alcohol or illicit drug use. Unit #: [id number] #: [id number] Patient: HAYDE WHITLOCK A FAMILY HISTORY Her mother at the age of 94. Her father at the age of a 65 of a myocardial infarction. ALLERGIES Iodine. HOME MEDICATIONS 1. Hydralazine 50 mg p.o. twice a day. 2. Norvasc 10 mg p.o. at bedtime. 3. Catapres 0.1 mg p.o. three times a day. 4. Glucophage 500 mg p.o. twice a day. 5. Potassium chloride 40 mEq p.o. daily. 6. Benazepril 10 mg p.o. daily. 7. Chlorthalidone 25 mg p.o. daily. 8. Hydrochlorothiazide 25 mg p.o. daily. 9. Nitroglycerin 0.4 mg sublingual every five minutes as needed for chest pain. 10. Zocor 40 mg p.o. daily. 11. Megace 10 mL p.o. daily. REVIEW OF SYSTEMS Denies chest pain, pressure, or tightness. Denies palpitations or shortness of breath. Positive for hand and arm numbness and tingling, jaw numbness, intermittent dizziness, intermittent headaches. Otherwise negative except for what was stated in the HPI. PHYSICAL EXAMINATION VITAL SIGNS: Temperature 98.2, heart rate 61, respiratory rate 16, blood pressure 168/59. GENERAL: This is a very pleasant 86-year-old female in no acute distress. She is awake and alert. HEENT: Head is atraumatic and normocephalic. Pupils are equal and round. Mucous membranes are moist. NECK: Supple. Trachea is midline. LUNGS: Clear to auscultation. Nonlabored respirations. CARDIOVASCULAR: S1, S2. Regular rate and rhythm. Positive for murmur. ABDOMEN: Soft, nontender, nondistended. EXTREMITIES: Pulses are diminished but palpable. No pedal edema. No cyanosis. NEUROLOGIC: Alert and oriented x3. Moves all extremities equally and follows commands without difficulty. DIAGNOSTIC STUDIES LABORATORY: Sodium 137, potassium 3.8, chloride 102, BUN 17, creatinine 1.1, glucose 186. Hemoglobin 12.4, hematocrit 38.3, white blood cell count 7.1, platelets 263,000. Point of care troponin less than 0.05. IMAGING: Chest x-ray shows elevation of left hemidiaphragm and no active disease. CT of the head without contrast shows moderate chronic microvascular disease changes in the left basal ganglia and the lisa to the right of the midline with scattered microvascular disease changes elsewhere in the deep white matter. No acute findings or significant change from January 14, 2017. Cervical CT shows degenerative changes at multiple levels with mild canal Unit #: [id number] #: [id number] Patient: HAYDE WHITLOCK stenosis and facet hypertrophic changes. No acute fracture or subluxation. CARDIOVASCULAR: EKG shows sinus rhythm with ventricular rate of 78, left ventricular hypertrophy, and nonspecific T-wave abnormalities. ASSESSMENT 1. Uncontrolled hypertension. 2. Urinary tract infection. 3. History of sinus bradycardia with second degree AV block, currently in normal sinus rhythm. 4. Diabetes mellitus. 5. Hyperlipidemia. 6. Peripheral arterial disease, status post carotid endarterectomy. 7. Coronary artery disease, status post coronary artery bypass grafting x5 in 2002. 8. Left ventricular ejection fraction 50% to 55% with mild aortic stenosis per echo, January 05, 2017. 9. History of complex migraines. PLAN Her symptoms appear neurologic in origin. Recommend neurology consult. Plan for Cardiolite after stress test. Patient wants to do that as outpatient. Okay to go home from cardiac standpoint with plans for patient stress test. Continue on hydralazine, Norvasc, Lotensin, hydrochlorothiazide, and statin. Thank you for asking us to see this patient. We appreciate the consult. Dictated by... Vanessa Lopez APRN for Gael Omalley M.D. GILDARDO/terry TD: 02/25/2017 14:48 JOB #: [id number] CONSULTATION REPORT Page 1 of 1 X X CONSULTATION REPORT
--- NOTE | ~2017-02-23 | CO ---
Unit #: [id number] #: [id number] Patient: HAYDE WHITLOCK [id number] [facility] [address] [place], [place] [address] [id number] MR#: [id number] NAME: HAYDE WHITLOCK. ROOM: 563 Age: 86 Sex: F Admission Date: 02/23/2017 : 1930 Attending Physician: Geovanna Hanna M.D. Primary Care Physician: Ari Johnson M.D. Consultation Date: 02/24/2017 CONSULTATION REPORT CONSULTING PHYSICIAN Caity Snyder A.P.R.N. REASON FOR CONSULT Bilateral upper extremity weakness and numbness. PATIENT IDENTIFICATION This is an 86-year-old right-handed female evaluated in room 563 at [facility]. SOURCE OF INFORMATION Obtained from the patient as well as the medical record. Patient was seen by neurology at this facility in December 2016. HISTORY OF PRESENT ILLNESS This is a very pleasant hard of hearing 86-year-old, right-handed female with a past medical history of possible complicated migraine versus complex partial seizure, seen by neurology at this facility in December 2016 and at [facility] for similar symptoms in November 2016, who presents to [facility] with complaints of bilateral arm weakness and hand numbness and was admitted for hypertensive urgency, treated with clonidine in the ER, UTI, started on Rocephin, and neurology was asked to see further regarding her report of upper extremity weakness and hand numbness. The patient states that she was at home with her 3-year-old grandson eating in the kitchen whenever she felt as though she was beginning to have possibly some numbness and tingling in her right hand. She states that she began to feel anxious and noticed that she was having it in her right hand and her left hand and that she was having trouble using her arms. She states that it felt numb but reports that she felt like it may have been worse on the right upper extremity than the left. She states that she became nervous as she was at home alone with her 3-year-old grandson and was worried of what might happen if she lost awareness as she has done in the past. Therefore, she called EMS and she was brought to the ER for further evaluation. She states that while in the ambulance one of the EMS personnel helped her to calm down her breathing which actually made her symptoms resolve essentially. She states that she was able to control them and keep them from getting worse. She denies losing consciousness or losing awareness, having any speech difficulty or changes, any headache, fever, chills, shortness of air, or chest pain. Symptoms resolved in the ER. She was treated with clonidine for her blood pressure and did respond to that. She was also treated for urinary tract infection and was started on Rocephin. Her culture for that is still pending at this time. Due to her upper extremity weakness that resolved, a CT of the cervical spine Unit #: [id number] #: [id number] Patient: HAYDE WHITLOCK without contrast was ordered which shows degenerative changes at multiple levels, relatively worse at C5-6 with mild canal stenosis and facet hypertrophic changes at multiple levels relatively worse at C3-4 on the left facet joint. No acute displaced fracture or subluxation. She had a CT of the head without contrast done as well which shows moderate chronic microvascular disease changes with chronic-appearing lacunar-type infarcts in the left basal ganglia and the lisa to the right of midline. Scattered microvascular disease changes elsewhere within the deep white matter with no acute findings or significant change since December 2016. She denies any other exacerbating or alleviating factors and states she is back to her baseline. PAST MEDICAL HISTORY 1. She was seen at this facility by neurology on January 04, 2017 and actually presented with what was thought to be an ischemic stroke initially, though her workup was unremarkable for that. She had acute onset of focal neurologic changes with aphasia, altered mental status, and left-sided drift. Thus, there was concern for left MCA stroke. She was not considered a candidate for (1) intervention as her last known well was not fully clear as to whether she woke up with symptoms. However, she actually improved overnight and upon re-evaluation the next morning was back to her baseline with normal mental status. She was treated for a similar episode at [facility] in the month prior and had a workup and was treated for a complicated migraine. She had an EEG done at [facility] by Dr. Vivas on January 05, 2017 for the confusion and aphasia. It was abnormal, consistent with mild left hemispheric dysfunction. Given her history, Dr. Vivas elected to start her on Topamax 25 mg b.i.d. for treatment of both migraine and possible complex partial seizure. However, that medication appears to have been stopped on her last admission here as it apparently did not make it onto her medication reconciliation form by mistake, so she is no longer on that medication. She states with these episodes she does occasionally have a headache and is having increasing frequency of headaches. Again, this episode that she had yesterday, however, she did not have mental status changes. 2. Hypertension. 3. CAD, status post CABG. 4. Breast cancer, status post mastectomy. 5. Hyperlipidemia. 6. Diabetes mellitus type 2. 7. Peripheral arterial disease, status post bilateral carotid endarterectomy. 8. Left subclavian artery stenosis, asymptomatic. She was evaluated by vascular in December 2016 with palpable radial pulses. No pain in the hand, even with increased demand with activity. It was treated as asymptomatic. 9. Sinus bradycardia. 10. Reformed smoker. FAMILY HISTORY Noncontributory given her stated age of 86. SOCIAL HISTORY Patient lives independently. She babysits her grandchildren. She walks to the bus everyday and gets a small child and babysits. She quit smoking in 1981. She smoked several years prior to that. No alcohol use or illicit drug use noted. Unit #: [id number] #: [id number] Patient: HAYDE WHITLOCK MALGORZATA Iodine. HOME MEDICATIONS 1. Hydralazine. 2. Norvasc. 3. Catapres. 4. Glucophage. 5. Potassium chloride. 6. Benazepril. 7. Chlorthalidone. 8. Hydrochlorothiazide. 9. Nitroglycerin p.r.n. 10. Zocor. 11. Megace. 12. She apparently is supposed to be on Topamax, but that was lost off of her med rec form apparently on her last admission. The patient states that her PCP did not stop the medication. REVIEW OF SYSTEMS A 14-point review of systems with pertinent positives are as discussed above, otherwise negative. PHYSICAL EXAMINATION VITAL SIGNS: Temperature 98.1, she has been afebrile. Pulse is 57, respirations 18, blood pressure 136/67, oxygen saturation 96% on 2 L. Height 5 feet 2 inches, weight 154 pounds, BMI 28. NEUROLOGIC: Patient is awake. She is hard of hearing but alert and oriented to person, place, and time as well as events. No right/left confusion. No finger agnosia. No aphasia, dysarthria, or apraxia. CRANIAL NERVES: She demonstrates full gabriel of vision. Eyes are conjugate without ptosis or nystagmus. Extraocular movements are intact. Sensation of the face and scalp is intact. Strength of muscles of facial expression is intact. Hearing is intact to voice. She is hard of hearing. Tongue is midline. Uvula is midline. Palate elevations normal. Head turning and shoulder shrug is unremarkable. Neck is supple. MOTOR: Demonstrates normal bulk and tone. Strength is equal 5/5 in the extremities. SENSORY: Intact. GAIT: Gait and Romberg deferred. REFLEXES: Reflexes 1/4. Toes are equivocal. COORDINATION: Unremarkable. Negative Tinel. Negative Phalen sign. DIAGNOSTIC STUDIES LABORATORY: CBC on arrival: White blood cell count 7.1, hemoglobin 12.4, hematocrit 38.3, platelet count 263,000. PT 10.7, INR 1, PTT 24.5. Sodium 137, potassium 3.8, chloride 102, CO2 of 28, glucose 186, BUN 17, creatinine 1.1, estimated GFR 45.4, calcium 9.4. AST 18, ALT 16, alkaline phosphatase 51, total protein 6.7, albumin 3.7. Urinalysis: One plus leukocyte esterase, 2+ protein, 10-25 white cells, negative for bacteria. No squamous cells seen. Culture pending. Troponin less than 0.05 and repeat less than 0.05. Repeat white blood cell count 7.8. IMAGING: As discussed above. Chest x-ray on February 23, 2017: Impression per radiology report: Eventration of the left diaphragm with mild volume loss at the left lung Unit #: [id number] #: [id number] Patient: HAYDE WHITLOCK. No active disease. CARDIOVASCULAR: EKG: Normal sinus rhythm per cardiology report with ventricular rate of 76 beats per minute on February 23, 2017. IMPRESSION 1. Bilateral upper extremity weakness, right greater than left: Resolved. Dr. Dunaway has requested MRI of the cervical spine. 2. History of migraine versus complex partial seizure: Please see details above. Will restart the patient's home dose of Topamax. It appears to have been stopped on her last admission due to incorrect admission med rec. 3. Hypertensive urgency: Resolved. 4. Urinary tract infection: Culture pending. 5. Diabetes mellitus type 2. 6. Hyperlipidemia. PLAN Patient states that this episode was different from past episodes. We reviewed past records in [facility]. She was started on Topamax for possible complex partial seizure versus migraine. Will restart that. Patient was able to control her symptoms at this time and did not have loss of consciousness or loss of awareness. She did state some improvement when instructed by EMS to slow down her breathing. Dr. Dunaway is recommending evaluating MRI of the C-spine. If negative, may just be discharged to followup as outpatient for further neurologic evaluation. The patient does not have any evidence of acidosis, history of kidney stones. Has mildly impaired kidney function but still has a creatinine of 1.2 and no evidence of severely decreased kidney function. Will restart her on a low dose of Topamax 25 mg p.o. b.i.d. Further recommendations to be made pending workup and further clinical course. Case discussed with Dr. Dunaway who saw and evaluated the patient today at the time of my evaluation. Dictated by... Nichelle Aj A.P.R.N. for Ramesh Yee/terry TD: 02/26/2017 09:04 JOB #: [id number] CONSULTATION REPORT Page 1 of 1 X Nichelle Aj ROSTER CLERK X CONSULTATION REPORT
[2017-02-23] MEDS ORDERED: PATIENT'S PHARMACY (12:51)
[2017-02-23] MEDS ORDERED: KCL PO (12:52)
[2017-02-23] MEDS ORDERED: CATAPRES0.1 MG PO (12:52)
[2017-02-23] MEDS ORDERED: HYDRALAZINE HCL50 MG PO (12:52)
[2017-02-23] MEDS ORDERED: METFORMIN PO (12:52)
[2017-02-23] MEDS ORDERED: NORVASC10 MG PO (12:52)
[2017-02-23] MEDS ORDERED: NITROGLYCERIN0.4 MG SL (12:53)
[2017-02-23] MEDS ORDERED: CHLORTHALIDONE25 MG PO (12:53)
[2017-02-23] MEDS ORDERED: BENAZEPRIL HCL10 M1 PO (12:53)
[2017-02-23] MEDS ORDERED: HYDROCHLOROTHIA25 MG PO (12:53)
[2017-02-23] MEDS ORDERED: ZOCOR PO (12:53)
[2017-02-23] MEDS ORDERED: MEGACE ORA400 MG/10 PO (12:54)
[2017-02-23 13:12] LABS: BASOPHIL% 0.5 % (0-2.5); EOSINOPHIL% 0.4 % (0.0-7.0); HEMATOCRIT 38.3 % (35.0-45.0); HEMOGLOBIN 12.4 gm/dL (12.0-16.0); LYMPHOCYTE# 1.9 X10e3 (1.0-3.5); LYMPHOCYTE% 26.5 % (17.0-45.0); MEAN CELL VOLUME 83.2 FL (83-96); MEAN CORPUSCULAR HEMOGLOBIN 26.9 PG (28-34); MEAN CORPUSCULAR HGB CONC 32.4 g/dL (30-36); MONOCYTE# 0.4 X10e3 (0-1.0); MONOCYTE% 6.2 % (3.0-12.0); NEUTROPHIL# 4.7 X10e3 (1.5-7.1); NEUTROPHIL% 66.4 % (40-75); PLATELET COUNT 263 X10e3 (140-420); RED CELL DISTRIBUTION WIDTH 14.3 % (11.0-15.5); WHITE BLOOD COUNT 7.1 X10e3 (4.0-10.5)
[2017-02-23 13:13] LABS: DIFF IND NO
[2017-02-23 13:25] LABS: PARTIAL THROMBOPLASTIN TIME 24.5 SECONDS (23.5-31.3); PROTHROMBIN TIME (PATIENT) 10.7 SECONDS (10.0-11.7)
[2017-02-23 13:42] LABS: ALBUMIN SERUM 3.7 g/dL (3.5-5.0); BILIRUBIN, DIRECT 0.1 mg/dL (0.0-0.2); BILIRUBIN,INDIRECT 0.3 mg/dL (0.0-0.9); BILIRUBIN,TOTAL 0.4 mg/dL (0.2-2.0); BUN/CREATININE RATIO 15.45; CALCIUM SERUM 9.4 mg/dL (8.4-10.2); CREATININE SERUM 1.1 mg/dL (0.6-1.4); GLOM FILT RATE Estimated 45.4 mL/min (>60); POTASSIUM 3.8 mmol/L (3.5-5.1); PROTEIN TOTAL SERUM 6.7 g/dL (6.0-8.3)
[2017-02-23 14:44] LABS: URINE SOURCE CLEAN CATCH
[2017-02-23 14:48] LABS: URINE APPEARANCE CLEAR; URINE BILIRUBIN NEG (NEG); URINE BLOOD NEG (NEG); URINE COLOR YELLOW; URINE GLUCOSE NEG (NEG); URINE KETONE NEG (NEG); URINE LEUKOCYTE ESTERASE 1+ (NEG); URINE NITRATE NEG (NEG); URINE PROTEIN 2+ (NEG); URINE SPECIFIC GRAVITY 1.014 (1.003-1.035); URINE UROBILINOGEN 0.2 MG/DL (NEG)
[2017-02-23 14:50] LABS: CULTURE INDICATED? YES; URBCS1 AUWI 0-2 /[HPF] (0-2); URINE BACTERIA AUWI NEG (NEGATIVE); URINE SQUAMOUS EPITHELIAL CELL NONE SEEN /[HPF]
[2017-02-23 16:58] LABS: POC - CKMB <1.0 ng/mL (0.0-7.9); POC - TROPONIN <0.05 ng/mL (<=0.05)
[2017-02-23 16:58] LABS: POC - CKMB <1.0 ng/mL (0.0-7.9); POC - TROPONIN <0.05 ng/mL (<=0.05)
[2017-02-24 10:39] LABS: HEMATOCRIT 35.6 % (35.0-45.0); HEMOGLOBIN 11.6 gm/dL (12.0-16.0); MEAN CELL VOLUME 83.1 FL (83-96); MEAN CORPUSCULAR HGB CONC 32.5 g/dL (30-36); MEAN PLATELET VOLUME 8.9 FL (6.5-11.5); RED BLOOD COUNT 4.29 X10e (3.90-5.30); RED CELL DISTRIBUTION WIDTH 14.5 % (11.0-15.5); WHITE BLOOD COUNT 7.8 X10e3 (4.0-10.5)
[2017-02-24 11:20] LABS: BUN/CREATININE RATIO 13.33; CREATININE SERUM 1.2 mg/dL (0.6-1.4); GLOM FILT RATE Estimated 40.9 mL/min (>60); POTASSIUM 3.7 mmol/L (3.5-5.1)
[2017-02-25 06:33] LABS: HEMOGLOBIN 11.8 gm/dL (12.0-16.0); MEAN CELL VOLUME 83.1 FL (83-96); MEAN CORPUSCULAR HEMOGLOBIN 27.3 PG (28-34); MEAN CORPUSCULAR HGB CONC 32.9 g/dL (30-36); MEAN PLATELET VOLUME 9.4 FL (6.5-11.5); RED BLOOD COUNT 4.33 X10e (3.90-5.30); RED CELL DISTRIBUTION WIDTH 14.7 % (11.0-15.5); WHITE BLOOD COUNT 8.1 X10e3 (4.0-10.5)
[2017-02-25 07:01] LABS: ALBUMIN SERUM 3.2 g/dL (3.5-5.0); BILIRUBIN,TOTAL 0.2 mg/dL (0.2-2.0); BUN/CREATININE RATIO 11.33; CALCIUM SERUM 9.3 mg/dL (8.4-10.2); CREATININE SERUM 1.5 mg/dL (0.6-1.4); GLOM FILT RATE Estimated 31.2 mL/min (>60); MAGNESIUM 1.7 mg/dL (1.6-3.0); POTASSIUM 3.9 mmol/L (3.5-5.1); PROTEIN TOTAL SERUM 5.7 g/dL (6.0-8.3)
[2017-02-25] MEDS ORDERED: HYDRALAZINE HC100 MG PO (09:27)
[2017-02-25] MEDS ORDERED: LOTENSIN20 MG PO (09:28)
[2017-02-25] MEDS ORDERED: KCL PO (09:29)
[2017-02-25] MEDS ORDERED: ACETAMINOPHEN PR (09:34)
== END 2017-02-25 17:43 | disposition home or self-care (01) | DRG 305 ==
LOC: CED 12:20 → CEDOF 17:58 → CED 19:33 → CEDOF 19:33 → C5C 21:11 → CEDOF 21:11 → C5C 02-24 06:31
PROVIDERS: Emergency Medicine; Internal Medicine; Nurse Practitioner
DX: I16.0 Hypertensive urgency (principal); E11.51 Type 2 diabetes mellitus with diabetic peripheral angiopathy without gangrene; N39.0 Urinary tract infection, site not specified; I25.10 Atherosclerotic heart disease of native coronary artery without angina pectoris; Z87.891 Personal history of nicotine dependence; E78.5 Hyperlipidemia, unspecified; Z79.84 Long term (current) use of oral hypoglycemic drugs; R53.1 Weakness; R51 Headache
CPT/HCPCS: 36415; 70450; 71010; 72125; 72141; 80048; 80053; 80076; 81003; 82553; 82947; 83735; 84484; 85025; 85027; 85610; 85730; 87086; 93005; 99285; J0696; J1650; J1815